=== PATIENT | female | born 1930 | race Caucasian/White ===

== ENCOUNTER 2017-01-18 14:13 | Inpatient (IN) ==
[2017-01-18] MEDS ORDERED: 0.45 % SODIUM CHLORIDE 1,000 ML IV SCH (17:15)
[2017-01-18] MEDS: 0.9 % SODIUM CHLORIDE 1,000 ML IV SCH (17:41)
[2017-01-18] MEDS: DOCUSATE SODIUM 100 MG CAPSULE PO SCH (20:56)
[2017-01-18] MEDS: HYDROcodone/APAP 5/325MG TABLET PO PRN (21:12)
[2017-01-19] MEDS: 0.9 % SODIUM CHLORIDE 1,000 ML IV SCH ×2 (03:30→13:30)
[2017-01-19] MEDS ORDERED: ceFAZolin 1 GM VIAL IV SCH (07:00)
[2017-01-19] MEDS: OMEPRAZOLE 20 MG CAPSULE PO SCH (11:53)
[2017-01-19] MEDS: DOCUSATE SODIUM 100 MG CAPSULE PO SCH ×2 (11:54→23:36)
[2017-01-19] MEDS ORDERED: LIDOCAINE HCL/PF 100 MG/5 ML SYRINGE IV ONE (15:40)
[2017-01-19] MEDS ORDERED: PHENYLEPHRINE 10 MG/ML VIAL IV ONE (15:40)
[2017-01-19] MEDS ORDERED: fentaNYL 250 MCG/5 ML VIAL IV ONE (15:40)
[2017-01-19] MEDS ORDERED: MIDAZOLAM 2 MG/2 ML VIAL IV ONE (15:40)
[2017-01-19] MEDS ORDERED: ONDANSETRON 4 MG/2 ML VIAL IV ONE (15:40)
[2017-01-19] MEDS ORDERED: PROPOFOL 200 MG/20 ML VIAL IV ONE (15:40)
[2017-01-19] MEDS ORDERED: TRANEXAMIC ACID 1,000 MG/10 ML VIAL IV ONE ×2 (15:40→19:07)
[2017-01-19] MEDS ORDERED: GLYCOPYRROLATE 0.2 MG/ML VIAL IV ONE (15:40)
[2017-01-19] MEDS ORDERED: KETAMINE 100 MG/ML ML IV ONE (15:40)
[2017-01-19] MEDS ORDERED: HETASTARCH 6% 500 ML BAG IV ONE (15:45)
[2017-01-19] MEDS ORDERED: GENTAMICIN SULFATE 800 MG/20 ML VIAL IR ONE ×2 (16:58→18:05)
[2017-01-19] MEDS ORDERED: MEPERIDINE 25 MG/ML SYRINGE IV PRN (18:32)
[2017-01-19] MEDS ORDERED: METHOCARBAMOL 1,000 MG/10 ML VIAL IV PRN (18:32)
[2017-01-19] MEDS ORDERED: IPRATROPIUM/ALBUTEROL 3 ML AMPUL.NEB NEB PRN (18:32)
[2017-01-19] MEDS ORDERED: fentaNYL 100 MCG/2 ML VIAL IV PRN (18:32)
[2017-01-19] MEDS ORDERED: ONDANSETRON 4 MG/2 ML VIAL IV PRN ×2 (18:32→19:07)
[2017-01-19] MEDS ORDERED: LACTATED RINGERS 1,000 ML IV SCH (18:45)
[2017-01-19] MEDS ORDERED: 0.9 % SODIUM CHLORIDE 250 ML IV SCH ×2 (18:45→20:45)
[2017-01-19] MEDS ORDERED: KETOROLAC 15 MG/ML VIAL IV PRN (19:07)
[2017-01-19] MEDS ORDERED: FLEETS ADULT ENEMA PR PRN (19:07)
[2017-01-19] MEDS ORDERED: ACETAMINOPHEN 325 MG TABLET PO PRN (19:07)
[2017-01-19] MEDS ORDERED: MAGNESIUM HYDROXIDE 30 ML ORAL.SUSP PO PRN (19:07)
[2017-01-19] MEDS ORDERED: HYDROcodone/APAP 10/325MG TABLET PO PRN (19:07)
[2017-01-19] MEDS ORDERED: BISACODYL 10 MG SUPP.RECT PR PRN (19:07)
[2017-01-19] MEDS ORDERED: BENZOCAINE/MENTHOL 1 LOZENGE PO PRN (19:07)
[2017-01-19] MEDS ORDERED: POLYETHYLENE GLYCOL 3350 17 GM PACKET PO PRN (19:07)
[2017-01-19] MEDS ORDERED: TEMAZEPAM 15 MG CAPSULE PO PRN (19:07)
--- NOTE | 2017-01-19 19:07 | Brief Operative Note ---
Date of procedure: 01/19/17 Pre-op diagnosis: left femur subtroch fx and failed gamma nail and supracondylar femur fx Post-op diagnosis: same Procedure: left gamma nail removal and cemented total hip and orif of supracondylar fx Grafts/Implants: Yes Anesthesia: GETA Complications: none Surgeon: Kyle King Finished Goods Planner: Brian Ruiz Estimated blood loss (cc): 400 Condition: stable Disposition: PACU
[2017-01-19] MEDS ORDERED: 0.45 % SODIUM CHLORIDE 1,000 ML IV SCH (19:15)
[2017-01-19] MEDS ORDERED: diphenhydrAMINE 25 MG CAPSULE PO PRN (19:16)
[2017-01-19] MEDS ORDERED: ALBUTEROL SULFATE 1 PUFF INHALER INH PRN (19:16)
[2017-01-19] MEDS ORDERED: IBUPROFEN 200 MG TABLET PO PRN (19:16)
[2017-01-19] MEDS ORDERED: CHLORPHENIRAMINE MALEATE PO PRN (19:16)
[2017-01-19] MEDS ORDERED: METOCLOPRAMIDE 5 MG TABLET PO SCH (21:00)
[2017-01-19] MEDS ORDERED: SENNOSIDES 1 TABLET PO SCH (21:00)
[2017-01-19] MEDS ORDERED: DOCUSATE SODIUM 100 MG CAPSULE PO SCH (21:00)
[2017-01-19] MEDS ORDERED: 0.9 % SODIUM CHLORIDE 250 ML IV ONE (21:55)
[2017-01-19] MEDS ORDERED: ACETAMINOPHEN 650 MG/65 ML BOTTLE IV PRN (22:38)
[2017-01-19] MEDS ORDERED: 0.9 % SODIUM CHLORIDE 1,000 ML IV SCH (22:41)
--- NOTE | 2017-01-19 22:44 | Internal Medicine Consult Note ---
Medical - CN: HPI - Data of Consult Requesting Physician: Kyle King Primary Care Provider: Jose Ramon Barnett - Consult Narrative Reason for consult: Post op Hypotension. History of present illness: Ms. Frost is a 86 year old Female with h/op right hip fracture, s/p failed gamma nail, was in the hospital today for removal of gamma nail procedure. The patient in the post op peroid was noted to be consistently hypotensive, and therefore medicine was consulted for further evaluation and management. The patient had procedure done in [place] today, the patient had approximatley 400cc blood loss during the surgical procedure as per op notes. The patient in the pacu and then PCU was hypotensive. During my eval the patient was already ordered 2 units of blood and first unit had just started. The patient complained of chills, but no other symptoms, she was somewhat confused and was not able to provide a proper history. The patient denies any chest pains, shortness of breath, headache , dizziness, abdominal pain, nausea and or vomiting. She has some chills post op, she denies post op pain. Labs show poc hct was 25, CXR chest shows elevated right li diaphram, othewise clear chest. no e/o gross infiltrate. BP during my eval was stable, map was 71, pt was 100% on 3 L nasal mask. CC: Kyle King All systems: reviewed and no additional remarkable complaints except as stated ( as per HPI) Medical - CN: PMH Medical history: gerd DJD Asthma? albuterol listed as home medication, but pt denies Surgical history: right hip fracture 1 yr ago. Pertinent family history: father with cancer, unknown type (from chart review) Social history: from chart review no etoh, tobacco or substance use. Medical - CN: Meds Home Medications Medication Instructions Recorded Confirmed Type Omeprazole [Prilosec] 20 mg PO DAILY 08/10/15 01/19/17 History Albuterol Sulfate [Ventolin] 1 puff INH Q4HP PRN 01/19/17 01/19/17 History Arginine [l-Arginine] 1 tablet PO DAILY 01/19/17 01/19/17 History Calcium Carbonate [Super Calcium] 600 mg PO BID 01/19/17 01/19/17 History Chlorpheniramine Maleate 1 tablet PO Q4HP PRN MDD 24mg 01/19/17 01/19/17 History [Chlor-Trimeton] Cholecalciferol (Vitamin D3) 400 unit PO BID 01/19/17 01/19/17 History [Delta D3] Cyclobenzaprine [Flexeril] 5 - 10 mg PO HSP PRN 01/19/17 01/19/17 History Docusate Sodium [Dulcolax Stool 200 mg PO DAILY 01/19/17 01/19/17 History Softener] HYDROcodone/ACETAMINOPHEN 1 - 2 each PO Q6HP PRN 01/19/17 01/19/17 History [Hydrocodon-Acetaminophen 5-325] Ibuprofen [Ibuprofen Ib] 400 mg PO TIDP PRN 01/19/17 01/19/17 History Lactobacillus [Culturelle] 1 cap PO DAILY 01/19/17 01/19/17 History Lisinopril [Zestril] 30 mg PO DAILY 01/19/17 01/19/17 History Metoclopramide [Reglan] 2.5 mg PO ACHS 01/19/17 01/19/17 History Multivitamin [One Daily] 1 each PO DAILY 01/19/17 01/19/17 History Polyethylene Glycol 3350 [Miralax] 17 gm PO DAILY 01/19/17 01/19/17 History Pseudoephedrine HCl 1 tablet PO Q12HP PRN 01/19/17 01/19/17 History [Pseudoephedrine ER] diphenhydrAMINE [Benadryl] 25 mg PO HSP PRN 01/19/17 01/19/17 History Allergies Allergy/AdvReac Type Severity Reaction Status Date / Time No Known Drug Allergies Allergy Verified 01/18/17 14:30 Medical - CN: Exam - Constitutional Vitals: Temp Pulse Resp BP Pulse Ox 97.5 F 82 16 174/84 100 01/19/17 20:05 01/19/17 20:05 01/19/17 20:05 01/19/17 20:05 01/19/17 21:09 Exam: GENERAL: The patient is a well-developed, well-nourished in no apparent distress. Is alert and oriented x2. VITAL SIGNS: Reviewed and as noted elsewhere. HEENT: Head is normocephalic and atraumatic. Extraocular muscles are intact. Pupils are equal, round, and reactive to light. Nares appeared normal. Mouth appears any without lesions. Mucous membranes are dry. NECK: Normal to inspection, Supple, No lymphadenopathy or thyromegaly. LUNGS: Air entry equal on both sides, no wheezing, crackles or rhonchi noted. No accessory muscles of respiration HEART: Regular rate HR 90-100 and rhythm normal, S1 and S2 heard, no Gallop, S3 or Rub Noted, No Gross murmur heard. ABDOMEN: Soft, nontender, and nondistended. Positive bowel sounds. No hepatosplenomegaly was noted. EXTREMITIES: No cyanosis, clubbing, rash, lesions or edema. NEUROLOGIC: Cranial nerves II through XII are grossly intact. Motor and Sensory System Grossly Intact (full exam not done given post op status) PSYCHIATRIC: Normal affect, Normal Mood. Appropriate Behavior. (as far as it can be post op, was confused and sleepy) SKIN: No ulceration or wounds noted, No jaundice, No rash noted. Medical - CN: Result - Labs CBC & Chem 7: 01/19/17 21:30 01/19/17 20:03 Labs: Short CBC 01/19/17 Range/Units 21:30 WBC TNP Hgb TNP Hct TNP Plt Count TNP Medical - CN: A/P - Narrative A/P Narrative: A/P Acute blood loss anemia: Due to post op blood loss, 400cc d ocumented, will get cbc, and in patient panel pt denies any h/o gi bleed, no itz, no blood in urine, check occult blood just incase 2 units prbc ordered, IVF saline after wards,pt bp is stable at this time, trend cbc, hold nsaids, ibuprofen and ketorolac for now, IV tylenol for pain, fever and chills for now. Get ua, check cbc /inpt panel to r/o other etiologies for low bp, abdon any uti or pna, CXR was not suggestive of pna on my read. GERD continue Prilosec continue same Right femur fracture/ s/p failed gamma nail: Management as per ortho. DVT asa bid as per ortho protocol.
[2017-01-19] MEDS: HYDROmorphone 2 MG/ML SYRINGE IV PRN (23:35)
[2017-01-19] MEDS: 0.9 % SODIUM CHLORIDE 10 ML SYRINGE IV SCH (23:36)
[2017-01-19] MEDS: ASPIRIN 325 MG ENTERIC COATED TABLET PO SCH (23:36)
[2017-01-19] MEDS: VITAMIN D3 400 UNIT TABLET PO SCH (23:36)
[2017-01-20] MEDS: HYDROmorphone 2 MG/ML SYRINGE IV PRN ×3 (00:58→09:16)
[2017-01-20 01:56] LABS: Basophils # (Auto) 0 K/mcL (0.0-0.3); Basophils % (Auto) 0.1 % (0.0-2.0); Eosinophils # (Auto) 0 K/mcL (0.0-0.7); Eosinophils % (Auto) 0 % (0.0-7.0); Granulocytes % (Auto) 88.9 % (38.0-78.0); Lymphocytes # (Auto) 0.8 K/mcL (1.5-4.8); Lymphocytes % (Auto) 4.3 % (15.5-49.0); Mean Cell Volume 95.9 fL (80.0-100.0); Mean Corpuscular HGB Conc 34.2 g/dL (31.0-36.0); Mean Corpuscular Hemoglobin 32.7 pg (26.0-34.0); Monocytes # (Auto) 1.2 K/mcL (0.1-0.9); Monocytes % (Auto) 6.7 % (1.0-12.0); Platelet Count 172 K/mcL (140-440); RBC 3.76 M/mcL (4.00-5.20); Red Cell Distribution Width 16.7 % (11.5-14.5)
[2017-01-20 02:19] LABS: ALT/SGPT 13 U/l (0-40); Albumin 2.2 gm/dL (3.2-5.2); Albumin/Globulin Ratio 1.6 (1.0-2.3); Alkaline Phosphatase 48 U/L (39-117); Bilirubin,Direct 0.2 mg/dL (0.0-0.3); Blood Urea Nitrogen 13 mg/dl (8-23); Gamma Glutamyl Transpeptidase 9 U/L (5-36); Magnesium 1.2 mg/dL (1.6-2.5); Uric Acid 3.9 mg/dL (2.5-8.0)
[2017-01-20] MEDS ORDERED: MAGNESIUM SULFATE 2 GM/50 ML BAG IV ONE ×2 (02:44→02:54)
[2017-01-20] MEDS: HYDROcodone/APAP 5/325MG TABLET PO PRN (02:47)
[2017-01-20 05:48] LABS: Basophils # (Auto) 0 K/mcL (0.0-0.3); Basophils % (Auto) 0.1 % (0.0-2.0); Eosinophils # (Auto) 0 K/mcL (0.0-0.7); Eosinophils % (Auto) 0.4 % (0.0-7.0); Granulocytes % (Auto) 85.7 % (38.0-78.0); Lymphocytes # (Auto) 0.8 K/mcL (1.5-4.8); Lymphocytes % (Auto) 6.3 % (15.5-49.0); Mean Cell Volume 96.2 fL (80.0-100.0); Mean Corpuscular HGB Conc 33.8 g/dL (31.0-36.0); Mean Corpuscular Hemoglobin 32.5 pg (26.0-34.0); Monocytes % (Auto) 7.5 % (1.0-12.0); Platelet Count 173 K/mcL (140-440); RBC 3.81 M/mcL (4.00-5.20); Red Cell Distribution Width 17.1 % (11.5-14.5)
[2017-01-20] MEDS: 0.9 % SODIUM CHLORIDE 10 ML SYRINGE IV SCH ×4 (05:51→21:01)
--- NOTE | 2017-01-20 06:49 | XRay Report ---
CLINICAL INFORMATION: Hypotension COMPARISON: 01/26/2016 FINDINGS: There is likely a small hiatal hernia. 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 The heart is minimally enlarged but unchanged. Pulmonary vessels are unremarkable. Lungs are clear. No effusions. IMPRESSION: No acute disease Interpreted and Authenticated by: Matias Wasserman 01/20/17
[2017-01-20] MEDS ORDERED: PSEUDOEPHEDRINE 30 MG TABLET PO PRN ×2 (06:55→13:58)
[2017-01-20 06:56] LABS: ALT/SGPT 15 U/l (0-40); Albumin 2.3 gm/dL (3.2-5.2); Albumin/Globulin Ratio 1.4 (1.0-2.3); Alkaline Phosphatase 53 U/L (39-117); Bilirubin,Direct 0.3 mg/dL (0.0-0.3); Blood Urea Nitrogen 15 mg/dl (8-23); Gamma Glutamyl Transpeptidase 10 U/L (5-36); Magnesium 2.1 mg/dL (1.6-2.5); Uric Acid 4.2 mg/dL (2.5-8.0)
--- NOTE | 2017-01-20 06:58 | XRay Report ---
CLINICAL INFORMATION: Postop total left hip revision and distal femoral fracture reduction and internal fixation COMPARISON: 01/27/2016 01/19/2017 pelvis and left femur films. FINDINGS: Left total hip revision is noted with a long femoral stem. 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 There is moderately comminuted oblique fracture of the distal femoral diaphysis which is transfixed by plate and screws. Alignment is anatomic. Left total knee prostheses is anatomically aligned. There is resorption about the tip of the tibial component which could indicate loosening. IMPRESSION: 1. Long stem left total hip prostheses revision - as described. 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 2. Obliquely oriented fracture of the distal femoral diaphysis has been reduced to anatomic alignment and transfixed by plate and screws. 3. Left total knee prostheses in anatomic position. There is a 10 mm lucent region of osteolysis, adjacent to the tibial stem, suggests the possibility loosening Interpreted and Authenticated by: Matias Wasserman 01/20/17
[2017-01-20] MEDS ORDERED: OMEPRAZOLE 20 MG CAPSULE PO SCH (07:30)
--- NOTE | 2017-01-20 07:36 | Operative Note ---
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 POSTOPERATIVE DIAGNOSIS: The failed gamma nail within subtrochanteric fracture nonunion with the addition of the supracondylar femur fracture, age approximately 5 to 6 days old. PROCEDURE: Left hip gamma nail removal, or hardware removal, open reduction and internal fixation of the subtrochanteric band, total hip arthroplasty with 200 mm size 5 reconstruction cemented stem and 48 cementless cup with two screws, a 36 mm +5 ceramic ball. Also, third procedure was a supracondylar femur fracture treated with open reduction and internal fixation with long plate, screws and cables and bone grafting. SURGEON: Kyle King MD MINE SUPERINTENDENT: Brian Ruiz PA-C ANESTHESIA: General LMA anesthesia. COMPLICATIONS: None. ESTIMATED BLOOD LOSS: About 300 to 400 mL. DESCRIPTION OF PROCEDURE: The patient was brought to the operating room and put to sleep with general LMA anesthesia. Once we confirmed the operative site of the left leg we then proceeded with the case. We made a superior posterior approach, identified the nail and removed two screws, one distal screw and one intertrochanteric screw. There was an obvious nonunion of the subtrochanteric area after we removed the gamma nail. The gamma nail had cut through the top of the head and was rubbing in the acetabulum. At this point, we proceeded with a total hip arthroplasty. We subluxed the hip anteriorly and reamed up to the size of a 48. We implanted a 48 cup at 20 degrees of anteversion and 40 degrees of inclination. Two screws were placed. The bone was very soft. We irrigated thoroughly and then we prepared the femur. This was reamed up for a size 5 with a 12 reamer. We then irrigated and cemented into place a 200 mm +5 stem with a +5 neck length ceramic head with a 36 mm ball within the cup. This was very stable. It was noticed during reduction that there was obvious crepitance near the knee at the starting of the case and then the middle. At this point we were imaged down by the knee and it showed a supracondylar femur fracture. At this point, we then exposed the fracture and placed a supracondylar plate and screws. This was anatomically reduced, held in place by a lobster claw. A 14 mm supracondylar Miko plate was then placed percutaneously, one cable at the fracture site, one cable proximally. We then placed five screws in the distal intercondylar region and then we placed five additional screws up the shaft. Some were unicortical, some were bicortical. This gave excellent fixation throughout. We irrigated thoroughly and bone grafted the fracture site. Images were taken. We then closed the fascial layer with Stratafix and 2-0 Vicryl and yamilka. Up by the hip this was irrigated. The capsule was closed with Stratafix and Ethibond and then we closed the skin with 2-0 Vicryl and yamilka. The patient tolerated this well. Sterile bandage was applied, abduction wedge was applied as well. We imaged all screws, and they all appeared to be well positioned. RBH:sumaya Job ID: [id number] Doc ID: [id number] Kyle King MD
--- NOTE | 2017-01-20 07:55 | Orthopedic Progress Note ---
Subjective Patient information: Note initiated : 01/20/17 at 7:52 am Service Date, if different from initiated Date: [] Patient: Radha Frost 86 y/o F admitted on 01/19/17 for Pain Control. Chief Complaint: [Pt is stable this morning on post operative day 1 without any significant concerns or complaints. Patients vital signs have remained stable. Patients dressing is dry and exhibits a grossly intact neurovascular and neuromotor exam. Patients 10 point ROS is otherwise negative. ] Objective Vital signs: Vital Signs Temp Pulse Pulse Pulse Resp BP BP 01/20/17 04:01 98.0 F 15 104/77 01/20/17 03:01 13 116/81 01/20/17 02:02 10 L 83/61 01/20/17 01:28 88 8 L 01/20/17 01:01 16 103/84 01/20/17 00:31 13 101/67 01/20/17 00:02 10 L 92/52 01/19/17 23:38 18 113/87 01/19/17 23:07 15 115/83 01/19/17 22:47 19 111/76 01/19/17 22:38 15 106/65 01/19/17 22:29 12 86/71 01/19/17 22:22 18 61/40 01/19/17 22:17 17 74/41 01/19/17 22:08 12 71/54 01/19/17 22:01 10 L 82/55 01/19/17 21:50 11 L 77/65 01/19/17 21:15 19 01/19/17 21:09 01/19/17 21:00 96.8 F L 13 01/19/17 20:05 97.5 F 82 82 16 97/79 01/19/17 19:50 78 74 16 120/74 01/19/17 19:35 97.5 F 87 85 14 82/58 01/19/17 19:30 97.5 F 88 85 14 98/65 01/19/17 19:25 97.5 F 86 85 18 94/69 01/19/17 19:20 97.5 F 85 85 18 95/41 01/19/17 11:34 97.9 F 18 159/85 BP Pulse Ox 01/20/17 04:01 97 01/20/17 03:01 98 01/20/17 02:02 99 01/20/17 01:28 97 01/20/17 01:01 100 01/20/17 00:31 99 01/20/17 00:02 99 01/19/17 23:38 100 01/19/17 23:07 100 01/19/17 22:47 100 01/19/17 22:38 100 01/19/17 22:29 100 01/19/17 22:22 100 01/19/17 22:17 100 01/19/17 22:08 100 01/19/17 22:01 100 01/19/17 21:50 100 01/19/17 21:15 63/38 100 01/19/17 21:09 100 01/19/17 21:00 74/51 100 01/19/17 20:05 174/84 100 01/19/17 19:50 100 01/19/17 19:35 174/84 100 01/19/17 19:30 174/84 99 01/19/17 19:25 174/84 100 01/19/17 19:20 174/84 100 01/19/17 11:34 97 Intake and Output 01/19/17 01/20/17 01/20/17 21:59 05:59 13:59 Intake Total 915 / 915 Output Total 1984 450 / 450 Balance -1984 465 / 465 Intake: Oral 240 / 240 Blood Product 675 / 675 Output: Urine Catheter Amount 1984 450 / 450 Other: Weight 147 lb 4.8 oz Intake & Output: Intake & Output 01/19/17 01/20/17 01/20/17 21:59 05:59 13:59 Intake Total 915 / 915 Output Total 1984 450 / 450 Balance -1984 465 / 465 Weight 147 lb 4.8 oz Intake: Oral 240 / 240 Blood Product 675 / 675 Output: Urine Catheter Amount 1984 450 / 450 Incision: Yes healing Incision clean and dry: Yes Dressing: Yes clean, Yes dry Weight bearing status: partial Neurological exam IM: Yes motor sensory intact, Yes neurovascular intact Extremities exam IM: Yes Foot pink and warm, Yes neurovascular intact - Labs CBC & BMP: 01/20/17 04:00 01/20/17 04:00 Labs: Orthopedic Labs 01/18/17 01/18/17 19:33 19:33 PT 15.7 H INR 1.2 H APTT 34 01/20/17 01/19/17 01/19/17 04:00 21:30 01:25 Hgb 12.4 TNP 12.3 Hct 36.6 TNP 36.0 Assessment and Plan (1) Hx of total hip arthroplasty The patient has been educated regarding dressing care, Physical Therapy recommendations, home exercises, restrictions, and follow up appointments. The patient has had all necessary DME prescribed. Pt will be followed by Hospitalist until deemed stable for hospital floor discharge. Pt will likely transfer to swing bed in [place]. Status: Acute (2) Closed left hip fracture Status: Acute Qualifiers: Encounter type: subsequent encounter
[2017-01-20] MEDS ORDERED: 0.9 % SODIUM CHLORIDE 500 ML IV ONE (08:26)
[2017-01-20] MEDS ORDERED: CALCIUM (OYSTER SHELL) 500 MG TABLET PO SCH (09:00)
[2017-01-20] MEDS ORDERED: ARGININE PO SCH (09:00)
[2017-01-20] MEDS ORDERED: POLYETHYLENE GLYCOL 3350 17 GM PACKET PO SCH (09:00)
[2017-01-20] MEDS ORDERED: DOCUSATE SODIUM 100 MG CAPSULE PO SCH (09:00)
[2017-01-20] MEDS ORDERED: MULTIVIT,THER IRON,CA,FA & MIN 1 TABLET PO SCH (09:00)
[2017-01-20] MEDS ORDERED: LACTOBACILLUS 1 CAPSULE PO SCH (09:00)
[2017-01-20] MEDS: OMEPRAZOLE 20 MG CAPSULE PO SCH (09:47)
[2017-01-20] MEDS: 0.9 % SODIUM CHLORIDE 1,000 ML IV SCH ×3 (09:48→14:01)
[2017-01-20] MEDS ORDERED: ceFAZolin 1 GM VIAL IV ONE ×3 (10:20→22:30)
[2017-01-20] MEDS: ASPIRIN 325 MG ENTERIC COATED TABLET PO SCH ×2 (10:26→20:59)
[2017-01-20] MEDS: METOCLOPRAMIDE 10 MG TABLET PO SCH ×4 (10:26→21:00)
[2017-01-20] MEDS: VITAMIN D3 400 UNIT TABLET PO SCH ×2 (11:40→21:00)
[2017-01-20] MEDS ORDERED: CHLORPHENIRAMINE MALEATE PO PRN (13:58)
[2017-01-20] MEDS ORDERED: MAGNESIUM HYDROXIDE 30 ML ORAL.SUSP PO PRN (13:58)
[2017-01-20] MEDS ORDERED: ALBUTEROL SULFATE 1 PUFF INHALER INH PRN (13:58)
[2017-01-20] MEDS ORDERED: ACETAMINOPHEN 650 MG/65 ML BOTTLE IV PRN (13:58)
[2017-01-20] MEDS ORDERED: FLEETS ADULT ENEMA PR PRN (13:58)
[2017-01-20] MEDS ORDERED: POLYETHYLENE GLYCOL 3350 17 GM PACKET PO PRN (13:58)
[2017-01-20] MEDS ORDERED: BISACODYL 10 MG SUPP.RECT PR PRN (13:58)
[2017-01-20] MEDS ORDERED: BENZOCAINE/MENTHOL 1 LOZENGE PO PRN (13:58)
[2017-01-20] MEDS ORDERED: ACETAMINOPHEN 325 MG TABLET PO PRN (13:58)
[2017-01-20] MEDS ORDERED: ONDANSETRON 4 MG/2 ML VIAL IV PRN (13:58)
[2017-01-20] MEDS: HYDROcodone/APAP 10/325MG TABLET PO PRN ×2 (14:46→18:39)
--- NOTE | 2017-01-20 19:24 | Internal Med Progress Note ---
Medical - PN: Subj Patient information: Note initiated : 01/20/17 at 7:21 pm Service Date, if different from initiated Date: [] Patient: Radha Frost 86 y/o F admitted on 01/19/17 for Pain Control. Chief Complaint: [] Interval history: Pt seen examined, no acute overnight issues notes of pain in the lft hip hb improved and has remained stable did receive some IVF today which helped she had received 2 units of blood before coming to [facility] which I am not sure why. monitor hb for now, if remains stable, likely related to surgery and hip fracture. if hb continues to drop will need to consider alternative etiology for blood loss. Pertinent ROS: Denies headache, dizziness Denies chest pain, palpitations Denies cough or shortness of breath Denies abdominal pain, nausea or vomiting. - Constitutional Vitals: Vital Signs Temp Pulse Resp BP Pulse Ox 97.9 F 97 H 14 161/63 99 01/20/17 16:01 01/20/17 15:00 01/20/17 16:01 01/20/17 16:01 01/20/17 16:01 Period Temp Pulse Resp BP Sys/Sandoval Pulse Ox Last 24 Hr 96.8 F-99.0 F 74-99 8-35 61-174/38-138 95-100 Intake and Output 01/20/17 01/20/17 01/20/17 05:59 13:59 21:59 Intake Total 2029 1740 / 1740 Output Total 450 / 450 450 / 450 Balance 1580 / 1580 1740 / 1740 -450 / -450 Weight 147 lb 4.8 oz Patient Weight 01/21/17 05:59 Weight 147 lb 4.8 oz Intake & Output: Intake & Output 01/20/17 01/20/17 01/20/17 05:59 13:59 21:59 Intake Total 2029 1740 / 1740 Output Total 450 / 450 450 / 450 Balance 1580 / 1580 1740 / 1740 -450 / -450 Weight 147 lb 4.8 oz Intake: IV 1115 / 1115 1500 / 1500 Sodium Chloride 0.9% 1,000 ml @ 699 / 699 75 mls/hr IV .[id number] REPLACED BY [facility] Rx#: [id number] Sodium Chloride 0.9% 500 ml @ 500 / 500 Wide Open IV BOLUS ONE Rx#: [id number] Oral 240 / 240 240 / 240 Blood Product 675 / 675 Output: Urine Catheter Amount 450 / 450 450 / 450 Other: Meal Breakfast Percent of Meal Consumed 25% Feeding Ability Independent Exam: Constitutional; Afebrile, cooperative, alert, not in distress. Eyes- No icterus, , No periorbital swelling Ears- Ext ear normal, hearing normal to conversation. Neck- Midline trachea, supple Respiratory system: Air Entry equal on both sides, No crackles or wheezing, no rhonchi. CVS- Rate rhythm regular, S1,S2 heard, no gallop, no rub. Abdomen- Soft nontender abdomen, no organomegaly, no tenderness, no guarding or rigidity, [employer]- AOOx3, moving all extremities, no gross focal deficit noted. Medical - PN: Obj Da - Labs CBC & Chem 7: 01/20/17 15:00 01/20/17 04:00 Labs: Abnormal Lab Results 01/20/17 01/20/17 01/20/17 15:00 10:00 04:00 WBC RBC Hgb 10.2 L 10.9 L Hct 30.0 L 31.8 L POC Hct RDW Gran % Lymph % (Auto) Gran # Lymph # (Auto) Taliaferro # (Auto) PT INR POC Sodium Sodium Carbon Dioxide 20 L Creatinine 0.4 L POC Creatinine Glucose 112 H POC Glucose Calcium 7.5 L POC WB Ioniz Calcium Magnesium Total Bilirubin 1.8 H Total Protein 4.0 L Albumin 2.3 L Globulin 1.7 L 01/20/17 01/19/17 01/19/17 04:00 20:03 01:25 WBC 13.2 H RBC 3.81 L Hgb Hct POC Hct 25.0 L RDW 17.1 H Gran % 85.7 H Lymph % (Auto) 6.3 L Gran # 11.3 H Lymph # (Auto) 0.8 L Taliaferro # (Auto) 1.0 H PT INR POC Sodium 131 L Sodium 129 L Carbon Dioxide 21 L Creatinine 0.4 L POC Creatinine 0.5 L Glucose 122 H POC Glucose 135 H Calcium 7.2 L POC WB Ioniz Calcium 1.08 L Magnesium 1.2 L Total Bilirubin 1.6 H Total Protein 3.6 L Albumin 2.2 L Globulin 1.4 L 01/19/17 01/18/17 01:25 19:33 WBC 18.0 H RBC 3.76 L Hgb Hct POC Hct RDW 16.7 H Gran % 88.9 H Lymph % (Auto) 4.3 L Gran # 16.0 H Lymph # (Auto) 0.8 L Taliaferro # (Auto) 1.2 H PT 15.7 H INR 1.2 H POC Sodium Sodium Carbon Dioxide Creatinine POC Creatinine Glucose POC Glucose Calcium POC WB Ioniz Calcium Magnesium Total Bilirubin Total Protein Albumin Globulin Meds: Medications Acetaminophen (Tylenol) 650 mg PO Q6HP PRN PRN Reason: PAIN/FEVER > 101 Hydrocodone Bitart/Acetaminophen ([place] 10/325mg) 0 tab PO Q4HP PRN PRN Reason: PAIN LEVEL 3-6 Last Admin: 01/20/17 18:39 Dose: 1 tab Albuterol Sulfate (Ventolin) 1 puff INH Q4HP PRN PRN Reason: Bronchodilation Aspirin (Ecotrin) 325 mg PO BID LILLIANA Bisacodyl (Dulcolax) 10 mg CA Q2-3DAYS PRN PRN Reason: Constipation Calcium Carbonate/Glycine (Oscal) 500 mg PO BID LILLIANA Diphenhydramine HCl (Benadryl) 25 mg PO HSP PRN PRN Reason: Sleep Docusate Sodium (Colace) 200 mg PO DAILY LILLIANA Hydromorphone HCl (Dilaudid) 0 mg IV Q2HP PRN PRN Reason: PAIN LEVEL > 6 Sodium Chloride (Sodium Chloride 0.9%) 1,000 mls @ 100 mls/hr IV .Q10H REPLACED BY [facility] Stop: 01/21/17 04:25 Last Admin: 01/20/17 14:01 Dose: Not Given Acetaminophen (Ofirmev) 650 mg in 65 mls @ 130 mls/hr IV Q6HP PRN PRN Reason: Pain/Fever > 101/chills Iron Carb/Multivit/Tufter Operator/Folic Acid (Multivitamin W/Minerals) 1 tab PO DAILY LILLIANA Lactobacillus Rhamnosus (Culturelle) 1 cap PO DAILY LILLIANA Magnesium Hydroxide (Milk Of Magnesia) 30 ml PO BIDP PRN PRN Reason: Constipation Metoclopramide HCl (Reglan) 2.5 mg PO ACHS REPLACED BY [facility] Last Admin: 01/20/17 18:19 Dose: 2.5 mg Omeprazole (Prilosec) 20 mg PO ACB REPLACED BY [facility] Ondansetron HCl (Zofran) 4 mg IV Q4HP PRN PRN Reason: Nausea And Vomiting Chlorpheniramine Maleate [Chlor- Trimeton] Tablet 1 dose PO Q4HP PRN PRN Reason: Allergy Symptoms Arginine [L-Arginine (] Tablet) 1 dose PO DAILY REPLACED BY [facility] Polyethylene Glycol (Miralax) 17 gm PO DAILY REPLACED BY [facility] Pseudoephedrine HCl (Sudafed) 30 mg PO Q12HP PRN PRN Reason: Allergy Symptoms Senna (Senokot) 2 tab PO HS REPLACED BY [facility] Sodium Biphosphate/Sodium Phosphate (Fleets Adult) 1 dose CA Q3-4DAYS PRN PRN Reason: Constipation Sodium Chloride (Saline Flush) 10 ml IV Q8 REPLACED BY [facility] Last Admin: 01/20/17 14:01 Dose: Not Given Temazepam (Restoril) 15 mg PO HSP PRN PRN Reason: Insomnia Throat Lozenges (Cepacol) 1 lozenge PO PRN PRN PRN Reason: Sore Throat Vitamin D (Vitamin D3) 400 unit PO BID REPLACED BY [facility] Medical - PN: A/P - Time Spent With Patient Total time spent is greater than 50% in coordination of care (as documented) at patient's floor/unit and/or counseling patient: - Narrative A/P Narrative: A/P Acute blood loss anemia: due to intraop / fracture related blood loss, hb stable now monitor for now if hb remains stable in AM should be stable for d/c from medicine stand point. bp much better today. GERD continue Prilosec continue same Right femur fracture/ s/p failed gamma nail: Management as per ortho. DVT asa bid as per ortho protocol.
[2017-01-20] MEDS: SENNOSIDES 1 TABLET PO SCH (20:59)
[2017-01-20] MEDS: CALCIUM (OYSTER SHELL) 500 MG TABLET PO SCH (20:59)
[2017-01-20] MEDS ORDERED: diphenhydrAMINE 25 MG CAPSULE PO PRN (21:00)
[2017-01-20] MEDS ORDERED: TEMAZEPAM 15 MG CAPSULE PO PRN (21:00)
[2017-01-20] MEDS ORDERED: 0.9 % SODIUM CHLORIDE 1,000 ML IV ONE (21:37)
[2017-01-20 22:53] LABS: Basophils # (Auto) 0 K/mcL (0.0-0.3); Basophils % (Auto) 0 % (0.0-2.0); Eosinophils # (Auto) 0 K/mcL (0.0-0.7); Eosinophils % (Auto) 0 % (0.0-7.0); Granulocytes % (Auto) 85.6 % (38.0-78.0); Lymphocytes # (Auto) 1.1 K/mcL (1.5-4.8); Lymphocytes % (Auto) 7.5 % (15.5-49.0); Mean Cell Volume 96.7 fL (80.0-100.0); Mean Corpuscular HGB Conc 33.5 g/dL (31.0-36.0); Mean Corpuscular Hemoglobin 32.4 pg (26.0-34.0); Monocytes % (Auto) 6.9 % (1.0-12.0); Platelet Count 161 K/mcL (140-440); RBC 2.73 M/mcL (4.00-5.20)
[2017-01-20 23:17] LABS: Blood Urea Nitrogen 21 mg/dl (8-23)
[2017-01-21] MEDS: HYDROmorphone 2 MG/ML SYRINGE IV PRN (00:21)
[2017-01-21] MEDS: 0.9 % SODIUM CHLORIDE 1,000 ML IV SCH (00:58)
[2017-01-21 07:19] LABS: Basophils # (Auto) 0 K/mcL (0.0-0.3); Basophils % (Auto) 0.1 % (0.0-2.0); Eosinophils # (Auto) 0.1 K/mcL (0.0-0.7); Eosinophils % (Auto) 0.3 % (0.0-7.0); Lymphocytes # (Auto) 0.9 K/mcL (1.5-4.8); Lymphocytes % (Auto) 5.1 % (15.5-49.0); Mean Cell Volume 96.8 fL (80.0-100.0); Mean Corpuscular Hemoglobin 32.9 pg (26.0-34.0); Monocytes # (Auto) 1.1 K/mcL (0.1-0.9); Monocytes % (Auto) 6.5 % (1.0-12.0); Platelet Count 156 K/mcL (140-440); RBC 2.57 M/mcL (4.00-5.20); Red Cell Distribution Width 17.3 % (11.5-14.5)
[2017-01-21] MEDS ORDERED: OMEPRAZOLE 20 MG CAPSULE PO SCH (07:30)
[2017-01-21 07:43] LABS: ALT/SGPT 15 U/l (0-40); Albumin 2.2 gm/dL (3.2-5.2); Albumin/Globulin Ratio 1.6 (1.0-2.3); Alkaline Phosphatase 51 U/L (39-117); Bilirubin,Direct 0.2 mg/dL (0.0-0.3); Blood Urea Nitrogen 17 mg/dl (8-23); Gamma Glutamyl Transpeptidase 12 U/L (5-36); Iron 32 mcg/dl (37-145); Magnesium 1.9 mg/dL (1.6-2.5); Transferrin % Saturation 28 % (15-50); Unsaturated Iron Binding 82 mcg/dL (112-346); Uric Acid 3.7 mg/dL (2.5-8.0)
[2017-01-21] MEDS: ARGININE PO SCH (08:10)
[2017-01-21] MEDS: VITAMIN D3 400 UNIT TABLET PO SCH ×2 (08:10→22:21)
[2017-01-21] MEDS: 0.9 % SODIUM CHLORIDE 10 ML SYRINGE IV SCH ×2 (08:15→12:19)
[2017-01-21 08:35] LABS: Retic Absolute 1.8 % (0.5-1.5)
[2017-01-21] MEDS: METOCLOPRAMIDE 10 MG TABLET PO SCH ×4 (08:35→22:26)
[2017-01-21] MEDS: HYDROcodone/APAP 10/325MG TABLET PO PRN ×2 (08:35→22:28)
[2017-01-21] MEDS: POLYETHYLENE GLYCOL 3350 17 GM PACKET PO SCH (08:35)
[2017-01-21] MEDS: MULTIVIT,THER IRON,CA,FA & MIN 1 TABLET PO SCH (08:35)
[2017-01-21] MEDS: DOCUSATE SODIUM 100 MG CAPSULE PO SCH (08:36)
[2017-01-21] MEDS: ASPIRIN 325 MG ENTERIC COATED TABLET PO SCH (08:36)
[2017-01-21] MEDS: CALCIUM (OYSTER SHELL) 500 MG TABLET PO SCH ×2 (08:36→22:25)
[2017-01-21] MEDS: LACTOBACILLUS 1 CAPSULE PO SCH (08:36)
[2017-01-21 08:38] LABS: Haptoglobin 128 mg/dl (30-200)
[2017-01-21 08:41] LABS: Vitamin B12 877.4 pg/ml (232-1245)
[2017-01-21] MEDS ORDERED: FLEETS ADULT ENEMA PR ONE (09:13)
[2017-01-21] MEDS ORDERED: 0.9 % SODIUM CHLORIDE 1,000 ML IV SCH (09:15)
--- NOTE | 2017-01-21 09:22 | Internal Med Progress Note ---
Medical - PN: Subj Patient information: Note initiated : 01/21/17 at 9:19 am Service Date, if different from initiated Date: [] Patient: Radha Frost 86 y/o F admitted on 01/19/17 for Pain Control. Chief Complaint: [] Interval history: Pt seen examined, no acute overnight issues notes of pain in the lft hip hb improved and has remained stable did receive some IVF today which helped she had received 2 units of blood before coming to [facility] which I am not sure why. monitor hb for now, if remains stable, likely related to surgery and hip fracture. if hb continues to drop will need to consider alternative etiology for blood loss. Jan 21: patient seen examined, overnight the patients hb continued to drop, it had dropped to 8.2 today, she is tachcyardic adn feels a bit dizzy. She has not yet had a bm CT abdomen does not reveal any retroperitoneal bleed, she has a normal BUN CT hip shows some hemorrage, but not a lot as per radiology Will plan to get GI eval to see if any ongoing GI loss? transfuse 2 more units of prbc d/c asa start on SCD for DVT prophylaxis. IV PPI for now Fleets enema to help with BM continue to monitor closely try to get PICC line if no good IV access. Laboratory Tests 01/20/17 01/20/17 01/20/17 04:00 10:00 15:00 Hgb 12.4 10.9 L 10.2 L 01/20/17 01/20/17 01/21/17 19:32 21:45 06:40 Hgb 9.7 L 8.9 L 8.4 L Pertinent ROS: Denies headache, some dizziness when upright. Denies chest pain, palpitations Denies cough or shortness of breath some left uppe qudarant pain when sitting up, no nausea or vomiting, admits to constipation. . - Constitutional Vitals: Vital Signs Temp Pulse Resp BP Pulse Ox 98.1 F 102 H 16 127/44 99 01/21/17 04:02 01/21/17 07:00 01/21/17 04:02 01/21/17 04:02 01/21/17 04:02 Period Temp Pulse Resp BP Sys/Sandoval Pulse Ox Last 24 Hr 97.6 F-98.1 F 97-102 11-35 61-161/44-83 95-100 Intake and Output 01/20/17 01/21/17 01/21/17 21:59 05:59 13:59 Intake Total 1120 / 1120 Output Total 450 / 450 375 / 375 Balance -450 / -450 745 / 745 Weight 147 lb 12.8 oz Intake & Output: Intake & Output 01/20/17 01/21/17 01/21/17 21:59 05:59 13:59 Intake Total 1120 / 1120 Output Total 450 / 450 375 / 375 Balance -450 / -450 745 / 745 Weight 147 lb 12.8 oz Intake: IV 1000 / 1000 Oral 120 / 120 Output: Urine Catheter Amount 450 / 450 375 / 375 Exam: Constitutional; Afebrile, cooperative, alert, not in distress. Eyes- No icterus, , No periorbital swelling Ears- Ext ear normal, hearing normal to conversation. Neck- Midline trachea, supple Respiratory system: Air Entry equal on both sides, No crackles or wheezing, no rhonchi. CVS- Rate tachycardic, rhythm regular, S1,S2 heard, no gallop, no rub. Abdomen- Soft nontender abdomen, no organomegaly, no tenderness, no guarding or rigidity, [employer]- AOOx3, moving all extremities, no gross focal deficit noted. Medical - PN: Obj Da - Labs CBC & Chem 7: 01/21/17 06:40 01/21/17 06:40 Labs: Abnormal Lab Results 01/21/17 01/21/17 01/21/17 06:40 06:40 06:40 WBC 17.0 H RBC 2.57 L Hgb 8.4 L Hct 24.8 L POC Hct RDW 17.3 H Gran % 88.0 H Lymph % (Auto) 5.1 L Gran # 14.9 H Lymph # (Auto) 0.9 L Ward # (Auto) 1.1 H Absolute Retic 1.8 H PT INR POC Sodium Sodium 132 L Chloride Carbon Dioxide Creatinine 0.4 L POC Creatinine Glucose 111 H POC Glucose Calcium 7.4 L POC WB Ioniz Calcium Phosphorus 2.6 L Magnesium Iron 32 L TIBC 114 L Unsat Iron Binding 82 L Ferritin 3448.0 H Total Bilirubin Total Protein 3.6 L Albumin 2.2 L Globulin 1.4 L 12/01/2501/20/17 01/20/17 21:45 21:45 19:32 WBC 14.1 H RBC 2.73 L Hgb 8.9 L 9.7 L Hct 26.4 L 27.9 L POC Hct RDW 17.0 H Gran % 85.6 H Lymph % (Auto) 7.5 L Gran # 12.0 H Lymph # (Auto) 1.1 L Ward # (Auto) 1.0 H Absolute Retic PT INR POC Sodium Sodium 127 L Chloride 94 L Carbon Dioxide 21 L Creatinine POC Creatinine Glucose 133 H POC Glucose Calcium 7.2 L POC WB Ioniz Calcium Phosphorus Magnesium Iron TIBC Unsat Iron Binding Ferritin Total Bilirubin Total Protein Albumin Globulin 01/20/17 01/20/17 01/20/17 15:00 10:00 04:00 WBC RBC Hgb 10.2 L 10.9 L Hct 30.0 L 31.8 L POC Hct RDW Gran % Lymph % (Auto) Gran # Lymph # (Auto) Ward # (Auto) Absolute Retic PT INR POC Sodium Sodium Chloride Carbon Dioxide 20 L Creatinine 0.4 L POC Creatinine Glucose 112 H POC Glucose Calcium 7.5 L POC WB Ioniz Calcium Phosphorus Magnesium Iron TIBC Unsat Iron Binding Ferritin Total Bilirubin 1.8 H Total Protein 4.0 L Albumin 2.3 L Globulin 1.7 L 01/20/17 01/19/17 01/19/17 04:00 20:03 01:25 WBC 13.2 H RBC 3.81 L Hgb Hct POC Hct 25.0 L RDW 17.1 H Gran % 85.7 H Lymph % (Auto) 6.3 L Gran # 11.3 H Lymph # (Auto) 0.8 L Ward # (Auto) 1.0 H Absolute Retic PT INR POC Sodium 131 L Sodium 129 L Chloride Carbon Dioxide 21 L Creatinine 0.4 L POC Creatinine 0.5 L Glucose 122 H POC Glucose 135 H Calcium 7.2 L POC WB Ioniz Calcium 1.08 L Phosphorus Magnesium 1.2 L Iron TIBC Unsat Iron Binding Ferritin Total Bilirubin 1.6 H Total Protein 3.6 L Albumin 2.2 L Globulin 1.4 L 01/19/17 01/18/17 01:25 19:33 WBC 18.0 H RBC 3.76 L Hgb Hct POC Hct RDW 16.7 H Gran % 88.9 H Lymph % (Auto) 4.3 L Gran # 16.0 H Lymph # (Auto) 0.8 L Ward # (Auto) 1.2 H Absolute Retic PT 15.7 H INR 1.2 H POC Sodium Sodium Chloride Carbon Dioxide Creatinine POC Creatinine Glucose POC Glucose Calcium POC WB Ioniz Calcium Phosphorus Magnesium Iron TIBC Unsat Iron Binding Ferritin Total Bilirubin Total Protein Albumin Globulin Meds: Medications Acetaminophen (Tylenol) 650 mg PO Q6HP PRN PRN Reason: PAIN/FEVER > 101 Last Admin: 01/21/17 08:36 Dose: 650 mg Hydrocodone Bitart/Acetaminophen ([place] 10/325mg) 0 tab PO Q4HP PRN PRN Reason: PAIN LEVEL 3-6 Last Admin: 01/21/17 08:35 Dose: 1 tab Albuterol Sulfate (Ventolin) 1 puff INH Q4HP PRN PRN Reason: Bronchodilation Bisacodyl (Dulcolax) 10 mg CA Q2-3DAYS PRN PRN Reason: Constipation Calcium Carbonate/Glycine (Oscal) 500 mg PO BID [facility] Last Admin: 01/21/17 08:36 Dose: 500 mg Diphenhydramine HCl (Benadryl) 25 mg PO HSP PRN PRN Reason: Sleep Docusate Sodium (Colace) 200 mg PO DAILY [facility] Last Admin: 01/21/17 08:36 Dose: 200 mg Hydromorphone HCl (Dilaudid) 0 mg IV Q2HP PRN PRN Reason: PAIN LEVEL > 6 Last Admin: 01/21/17 00:21 Dose: 0.4 mg Acetaminophen (Ofirmev) 650 mg in 65 mls @ 130 mls/hr IV Q6HP PRN PRN Reason: Pain/Fever > 101/chills Sodium Chloride (Sodium Chloride 0.9%) 1,000 mls @ 20 mls/hr IV .Q24H [facility] Iron Carb/Multivit/[place]/Folic Acid (Multivitamin W/Minerals) 1 tab PO DAILY [facility] Last Admin: 01/21/17 08:35 Dose: 1 tab Lactobacillus Rhamnosus (Culturelle) 1 cap PO DAILY [facility] Last Admin: 01/21/17 08:36 Dose: 1 cap Magnesium Hydroxide (Milk Of Magnesia) 30 ml PO BIDP PRN PRN Reason: Constipation Metoclopramide HCl (Reglan) 2.5 mg PO ACHS [facility] Last Admin: 01/21/17 08:35 Dose: 2.5 mg Omeprazole (Prilosec) 20 mg PO ACB [facility] Last Admin: 01/21/17 08:35 Dose: 20 mg Ondansetron HCl (Zofran) 4 mg IV Q4HP PRN PRN Reason: Nausea And Vomiting Last Admin: 01/20/17 19:26 Dose: 4 mg Chlorpheniramine Maleate [Chlor- Trimeton] Tablet 1 dose PO Q4HP PRN PRN Reason: Allergy Symptoms Arginine [L-Arginine (] Tablet) 1 dose PO DAILY [facility] Last Admin: 01/21/17 08:10 Dose: Not Given Polyethylene Glycol (Miralax) 17 gm PO DAILY [facility] Last Admin: 01/21/17 08:35 Dose: 17 gm Pseudoephedrine HCl (Sudafed) 30 mg PO Q12HP PRN PRN Reason: Allergy Symptoms Senna (Senokot) 2 tab PO HS [facility] Last Admin: 01/20/17 20:59 Dose: 2 tab Sodium Biphosphate/Sodium Phosphate (Fleets Adult) 1 dose CA Q3-4DAYS PRN PRN Reason: Constipation Sodium Chloride (Saline Flush) 10 ml IV Q8 [facility] Last Admin: 01/21/17 08:15 Dose: Not Given Temazepam (Restoril) 15 mg PO HSP PRN PRN Reason: Insomnia Last Admin: 01/20/17 20:59 Dose: 15 mg Throat Lozenges (Cepacol) 1 lozenge PO PRN PRN PRN Reason: Sore Throat Vitamin D (Vitamin D3) 400 unit PO BID [facility] Last Admin: 01/21/17 08:10 Dose: Not Given Medical - PN: A/P - Time Spent With Patient Total time spent is greater than 50% in coordination of care (as documented) at patient's floor/unit and/or counseling patient: - Narrative A/P Narrative: A/P Acute blood loss anemia: due to intraop / fracture related blood loss, hb trending down slowly again. Transfuse 2 more units GI consult to r/o GI source of bleed. IV PPI monitor for now on telemetery, hct q6 hrs. GERD IV PPI For now till GI eval Right femur fracture/ s/p failed gamma nail: Management as per ortho. DVT scd for now given concern for bleed, resume dvt prophylaxis if no obvious bleed noted.
--- NOTE | 2017-01-21 10:31 | XRay Report ---
CLINICAL INFORMATION: Elevated white blood cell count COMPARISON: 01/19/2017 FINDINGS: Suspect a small hiatal hernia. The cardiomediastinal silhouette and pulmonary vessels are otherwise normal. Minor atelectasis present in the right base. There are no oumar infiltrates or effusions IMPRESSION: Mild atelectasis - right base. No infiltrates Interpreted and Authenticated by: Matias Wasserman 01/21/17
[2017-01-21] MEDS: PANTOPRAZOLE 40 MG VIAL IV SCH ×2 (12:16→17:03)
--- NOTE | 2017-01-21 15:22 | Cat Scan Report ---
CLINICAL INFORMATION: Recent left hip revision. Decreasing hematocrit evaluate for hemorrhage COMPARISON: None. TECHNIQUE: 0.625 mm helical slices were obtained from the mid heart through the subtrochanteric regions. Following reconstruction, 2.5 mm sagittal, coronal and axial reformatted images were processed and reviewed at bone and soft tissue windows.The exam was performed using radiation dose optimization techniques including, but not limited to, automated exposure control, adjustment of the mA and/or kV according to patient size and use of iterative reconstruction technique. FINDINGS: Lung bases show only scattered scarring and atelectasis. Tiny bilateral pleural effusions noted. Moderate size hiatal hernia is present. The heart is mildly enlarged and there is very heavy calcification the region of mitral annulus. Images through the abdomen show the noncontrasted gallbladder is mildly enlarged, but otherwise, normal.The bile ducts are normal - CBD is 5 mm. The noncontrasted liver, both kidneys, adrenal glands, spleen, pancreas and aorta are normal in size, configuration and attenuation without focal lesion. There is no hemorrhage within the mesenteric cavity or retroperitoneal region. Multiple sigmoid diverticuli noted but no evidence of diverticulitis. The remainder of the colon, small bowel and stomach are grossly normal. No free air or adenopathy. Images through the pelvis show urinary bladder to be normal. Normal-appearing post menopausal uterus and ovaries noted. Left total hip revision changes are noted. The femoral stem extends through a severely comminuted fracture of the proximal femoral diaphysis. There are also cerclage wires are supportive of the proximal diaphyseal fracture. There is marked osseous resorption of the [place] acetabulum. The acetabular component of the hip prostheses projects through the medial wall of the bony acetabulum which is fractured. Only the lateral one half of the prosthetic acetabulum is supported by pelvic bone. There is moderate edema within the periarticular soft tissues including the gluteal musculature. There is a 4 cm hematoma in the subcutaneous fat of the gluteal region and 3-4 smaller hematomas are seen in the gluteal musculature. Severe T10 and T12 compression fractures are chronic IMPRESSION: 1. No evidence of intraperitoneal or retroperitoneal hemorrhage 2. Left total hip revision. There is moderate osseous resorption of the [place] acetabulum with the prosthetic acetabulum projecting through the medial acetabular wall which is fractured. Only the lateral one half of the prosthetic acetabulum is supported by the pelvic bone. The acetabulum was normal on a plain film one year prior 01/28/2016. Suspect the osseous resorptive is a result of inflammation or infection. The femoral stem extends through an transfixes a mildly comminuted subtrochanteric fracture which is mildly displaced. 3. Moderate edema within the periarticular musculature and subcutaneous fat. There is a 4 cm hematoma subcutaneous right gluteal fat with scattered smaller hematomas within the gluteal musculature. They are relatively small and likely would not account for significant blood loss. 4. Moderate-sized hiatal hernia 5. Bibasilar atelectasis and small effusion. Interpreted and Authenticated by: Matias Wasserman 01/21/17
--- NOTE | 2017-01-21 16:05 | Cat Scan Report ---
CLINICAL INFORMATION: Status post left total hip revision. Decreasing hematocrit. TECHNIQUE: 0.625 mm helical slices were obtained from the mid ileum through the proximal tibia and fibula. Following reconstruction, 2.5 mm sagittal, coronal axial reformatted images were processed and reviewed at bone and soft tissue windows. FINDINGS: Long stem left total hip revision is in near-anatomic alignment. The femoral stem extends through moderately comminuted fracture subtrochanteric fracture. The fragments are displaced less than 1 cm. The prosthetic acetabulum extrusion through the fracture wall of the medial point [place] acetabula which shows marked osteolysis. No effusion within the left hip joint. There is also a mildly comminuted obliquely oriented fracture of the distal femoral diaphysis which is transfixed by plate and screws the fragments are mildly displaced. Left total knee prostheses is unremarkable. There is a 20.5 cm hematoma in the subcutaneous fat of the left gluteal region and scattered smaller hematomas and edema is seen within the periarticular musculature including the gluteal region. IMPRESSION: 1. 3.5 cm hematoma in the subcutaneous left gluteal fat with scattered smaller hematomas in the periarticular musculature. 2. Left total hip revision. There is moderate osteolysis of the [place] acetabulum with displacement of the prosthetic acetabulum through the thin medial wall into the soft tissue. 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 The medial wall is fractured. Only the lateral one half of the prosthetic acetabulum is supported by the pelvis. The femoral stem transfixes a mildly comminuted, mildly displaced fracture of the proximal femur. 3. Moderately comminuted fracture the distal femoral diaphysis transfix by plate and screws. Minimal displacement. Interpreted and Authenticated by: Matias Wasserman 01/21/17
[2017-01-21] MEDS ORDERED: KETAMINE 10 MG/ML ML IV PRN (16:49)
[2017-01-21] MEDS ORDERED: MIDAZOLAM 2 MG/2 ML VIAL IV SCH (17:00)
[2017-01-21] MEDS ORDERED: PROPOFOL 200 MG/20 ML VIAL IV SCH (17:00)
--- NOTE | 2017-01-21 20:28 | Consultation ---
DATE OF CONSULTATION: 01/21/2017 Brief Consultation Note. IMPRESSION: 1. Anemia, probably secondary to blood loss around left hip surgery involving a failed gamma nail and a cemented total hip and open reduction and internal fixation of a supracondylar fracture. 2. Possible gastric ulcer, Dieulafoy's lesion, or angiodysplasia that is causing some blood loss. 3. By history, reflux but currently asymptomatic. 4. Possible bone marrow hypofunction as evidenced by a reticulocyte count of approximately 1.8 with a low hemoglobin. 5. Additional diagnoses include degenerative joint disease, ?asthma. DISCUSSION AND RECOMMENDATIONS: I feel it worthwhile to proceed with an EGD as the patient could have a Dieulafoy's lesion, an angiodysplasia, or some ulcers that are not really causing too much in the way of classical peptic ulcer disease symptoms. I would be hesitant to proceed with a colonoscopy until we have more obvious evidence that the patient is bleeding from the lower GI tract. HISTORY OF PRESENT ILLNESS: The patient is an 86-year-old lady who I believe has a primary care physician of Dr. Jose Ramon Barnett. The patient recently had surgery on her right hip by Dr. Kyle Kign. The patient did have some bleeding. She was somewhat hypotensive. Dr. Yancey, hospitalist internal medicine physician, was consulted. IMAGING: I believe CAT scan was not impressive enough to strongly suggest that the hematoma seen would totally explain the blood loss. The patient is on PPI medication. She has had reflux symptoms. She does have some abdominal pain or low chest pain. Endoscopy was indicated to evaluate for pathology in the upper gastrointestinal tract that may explain her symptoms. When I evaluated the patient, she denied nausea and vomiting. She denied reflux at this time but admitted she has had reflux in the past. She denies dysphagia. She has not had a bowel movement for a few days, probably in part because of the surgery and change in diet and activity and perhaps narcotics. She does not have a chronic problem with constipation. She denies melena, hematochezia or diarrhea. PAST MEDICAL HISTORY: Does include gastroesophageal reflux disease, degenerative joint disease, recent hip fracture and surgical treatment and there is some question about whether she has asthma. PAST SURGICAL HISTORY: Right hip fracture about a year ago. I believe she has recently had surgery on the left hip with the failed gamma nail and open reduction and internal fixation of the fracture with a " CURRENT MEDICATIONS: Please see list found elsewhere in the chart, such as Dr. Yancey's consultation. I believe this does include: Omeprazole 20 mg a day. Albuterol. Lisinopril. Many other medications. She is on hydrocodone. ALLERGIES: NO KNOWN DRUG ALLERGIES per report. HABITS: Smoking: None. Alcohol: None. Coffee, caffeinated beverages: Usually a cup a day. REVIEW OF SYSTEMS: Genitourinary: No complaints of pain or burning on urination. Respiratory: No significant complaints of a cough at this time. PHYSICAL EXAMINATION: VITAL SIGNS: Pulse was about 108, respirations about 18, blood pressure 138/55, pulse oximetry is 97. Weight 144 pounds. LUNGS: Clear. No wheezes noted. HEART: Regular, but tachycardic. No murmurs noted. ABDOMEN: Soft. Bowel sounds are present. Nontender to mild palpation. Spleen was not palpable. Liver span is around 6 cm at midclavicular line. LABORATORY STUDIES: Hemoglobin was 12.4 at one time, drifted down to 8.4. I believe she has received some blood in transfusion. Most recent hemoglobin was about 10.4. MCV was around 96.8. Reticulocyte count was perhaps low for the degree of anemia at 1.8. This may suggest an element of bone marrow hypofunction, perhaps because of her age. INR was 1.2. Iron was about 32. Ferritin was high at 3448, probably acute phase reactant. Chemistry panel: Sodium is 132, potassium 4.4, chloride 101, CO2 is 22, BUN is about 17, creatinine 0.4, vitamin B12 level was 877. Folate was 13.7. CRD:kdesther Job ID: [id number] Doc ID: [id number] Clayton King MD
[2017-01-21] MEDS: SENNOSIDES 1 TABLET PO SCH (22:25)
[2017-01-22] MEDS: 0.9 % SODIUM CHLORIDE 10 ML SYRINGE IV SCH ×4 (00:32→21:11)
[2017-01-22 02:28] LABS: Basophils # (Auto) 0 K/mcL (0.0-0.3); Basophils % (Auto) 0.1 % (0.0-2.0); Eosinophils # (Auto) 0 K/mcL (0.0-0.7); Eosinophils % (Auto) 0.1 % (0.0-7.0); Lymphocytes # (Auto) 1.1 K/mcL (1.5-4.8); Lymphocytes % (Auto) 7.1 % (15.5-49.0); Mean Corpuscular HGB Conc 34.1 g/dL (31.0-36.0); Mean Corpuscular Hemoglobin 31.7 pg (26.0-34.0); Monocytes # (Auto) 1.2 K/mcL (0.1-0.9); Monocytes % (Auto) 7.7 % (1.0-12.0); Platelet Count 142 K/mcL (140-440); RBC 3.18 M/mcL (4.00-5.20); Red Cell Distribution Width 17.2 % (11.5-14.5)
[2017-01-22 02:43] LABS: ALT/SGPT 14 U/l (0-40); Albumin 2.2 gm/dL (3.2-5.2); Alkaline Phosphatase 62 U/L (39-117); Bilirubin,Direct 0.3 mg/dL (0.0-0.3); Blood Urea Nitrogen 17 mg/dl (8-23); Gamma Glutamyl Transpeptidase 13 U/L (5-36); Magnesium 1.9 mg/dL (1.6-2.5)
--- NOTE | 2017-01-22 06:46 | Operative Note ---
DATE OF OPERATION: 01/21/2017 PREPROCEDURE DIAGNOSIS: Anemia,? upper gastrointestinal bleeding. POSTPROCEDURE DIAGNOSES: 1. Gastritis, minimal EGitis. 2. EGitis,? reflux. 3. Hiatal hernia. No pathology found in upper GI tract to explain bleeding. ADDITIONAL COMMENTS: Bleeding is probably from the hip surgery site and it is possible the bone marrow may not be functioning ideally. PROCEDURE: Esophagogastroduodenoscopy with biopsy. INSTRUMENT USED: Olympus LIV [id number] endoscope. SPECIMENS OBTAINED: Biopsies from antrum for histopathology including checking for Helicobacter. Biopsies from distal esophagus,? reflux. INDICATIONS FOR PROCEDURE: The patient is an 86-year-old lady who had hip surgery, I believe on the left with Dr. King. The patient's primary care provider, I believe, is Dr. Barnett. The patient was admitted to the hospital under the courtesy of Dr. Yancey. She has had some bleeding around the hip surgery site. Hemoglobin did drop a fair amount, I believe from 12.4 to 8.4. I believe she has gotten some blood in transfusion. She does have some upper abdominal pain. She has had reflux in the past but denies reflux recently. She denies nausea and vomiting. She has not had a bowel movement for a few days, but this is probably associated with the hip surgery and perhaps narcotics. She denies constipation on a regular basis. Endoscopy is indicated to evaluate for an asymptomatic ulcer or other pathology that may contribute to some bleeding. A Dieulafoy's lesion or angiodysplasia also could be bleeding and those usually would not cause any symptoms such as pain or nausea. INFORMED CONSENT: The procedure was reviewed with the patient. The patient had no further questions and accepts the risks and benefits thereof. One of the risks that were discussed included . Additional risks that were also discussed included bleeding, reaction to medication, possible perforation and possible need for surgery. IV MEDICATIONS USED: Versed 1 and propofol 30. FINDINGS: ESOPHAGUS: Proximal, mid and distal esophagus normal. EG JUNCTION: There was some minimal erythema at the EG junction. This was at 35 cm. There was a hiatal hernia down to 37 cm. STOMACH: Cardia, fundus and body normal. Antrum: There were a few areas of minimal erythema and edema noted. Biopsies were taken for histopathology primarily to check for Helicobacter. PYLORUS: Normal. DUODENUM: This appeared normal. No angiodysplasia were seen. No suggestion of celiac disease was noted. RECOMMENDATIONS: Antireflux measures as tolerated. I would recommend a PPI medication for 1 or 2 months and then try to discontinue the PPI medication. The patient should be observed for any signs or symptoms of significant lower GI bleeding. If she does have some obvious lower GI bleeding that is in a significant amount, colonoscopy may be necessary. Currently, I feel the hassle or negative effects of a colonoscopy outweigh any potential benefit. However, if she does have some obvious bright red blood per rectum of significant quantity, colonoscopy may be necessary. CRD:kh Job ID: [id number] Doc ID: [id number] Clayton King MD
[2017-01-22] MEDS: METOCLOPRAMIDE 10 MG TABLET PO SCH ×4 (09:20→21:11)
[2017-01-22] MEDS: LACTOBACILLUS 1 CAPSULE PO SCH (09:20)
[2017-01-22] MEDS: CALCIUM (OYSTER SHELL) 500 MG TABLET PO SCH ×2 (09:21→21:10)
[2017-01-22] MEDS: MULTIVIT,THER IRON,CA,FA & MIN 1 TABLET PO SCH (09:21)
[2017-01-22] MEDS: HYDROcodone/APAP 10/325MG TABLET PO PRN ×2 (09:21→22:30)
[2017-01-22] MEDS: POLYETHYLENE GLYCOL 3350 17 GM PACKET PO SCH (09:22)
[2017-01-22] MEDS: PANTOPRAZOLE 40 MG VIAL IV SCH (09:22)
[2017-01-22] MEDS: DOCUSATE SODIUM 100 MG CAPSULE PO SCH (09:22)
[2017-01-22] MEDS: ARGININE PO SCH (09:22)
[2017-01-22] MEDS: VITAMIN D3 400 UNIT TABLET PO SCH ×2 (09:22→21:11)
[2017-01-22] MEDS ORDERED: MAGNESIUM HYDROXIDE 30 ML ORAL.SUSP PO ONE (11:22)
--- NOTE | 2017-01-22 11:22 | Internal Med Progress Note ---
Medical - PN: Subj Patient information: Note initiated : 01/22/17 at 11:18 am Service Date, if different from initiated Date: [] Patient: Radha Frost 86 y/o F admitted on 01/19/17 for Pain Control. Chief Complaint: [] Interval history: Pt seen examined, no acute overnight issues notes of pain in the lft hip hb improved and has remained stable did receive some IVF today which helped she had received 2 units of blood before coming to [facility] which I am not sure why. monitor hb for now, if remains stable, likely related to surgery and hip fracture. if hb continues to drop will need to consider alternative etiology for blood loss. Jan 21: patient seen examined, overnight the patients hb continued to drop, it had dropped to 8.2 today, she is tachcyardic adn feels a bit dizzy. She has not yet had a bm CT abdomen does not reveal any retroperitoneal bleed, she has a normal BUN CT hip shows some hemorrage, but not a lot as per radiology Will plan to get GI eval to see if any ongoing GI loss? transfuse 2 more units of prbc d/c asa start on SCD for DVT prophylaxis. IV PPI for now Fleets enema to help with BM continue to monitor closely try to get PICC line if no good IV access. Jan 22 Patient seen examined, no acute overnight issues, removed IV, which was placed in Right EJ again, no other concerns or complaints her Hb dropped by 1 grm overnight, hemodynamically stable EGD is negative, reviewed the case with Dr barry, we think its the left leg where she is bleeding into, not much to be done except to transfuse he is ok with holding ASA bid for now for DVT given ongoing bleed at the surgical site. BP is stable Pertinent ROS: Denies headache, dizziness Denies chest pain, palpitations Denies cough or shortness of breath Denies abdominal pain, nausea or vomiting. - Constitutional Vitals: Vital Signs Temp Pulse Resp BP Pulse Ox 97.8 F 92 H 18 151/60 96 01/22/17 08:00 01/22/17 04:02 01/22/17 08:00 01/22/17 08:00 01/22/17 08:00 Period Temp Pulse Resp BP Sys/Sandoval Pulse Ox Last 24 Hr 97.8 F-98.6 F 92-108 16-20 115-160/44-126 89-100 Intake and Output 01/21/17 01/22/17 01/22/17 21:59 05:59 13:59 Intake Total 2104 / 2104 Output Total 850 / 850 200 / 200 Balance 1254 / 1254 -200 / -200 Weight 163 lb 9.6 oz Intake & Output: Intake & Output 01/21/17 01/22/17 01/22/17 21:59 05:59 13:59 Intake Total 2104 / 2104 Output Total 850 / 850 200 / 200 Balance 1254 / 1254 -200 / -200 Weight 163 lb 9.6 oz Intake: IV 2103 Sodium Chloride 0.9% 1,000 ml @ 104 / 104 20 mls/hr IV .Q24H [facility] Rx#: [id number] Output: Urine Catheter Amount 850 / 850 200 / 200 Exam: Constitutional; Afebrile, cooperative, alert, not in distress. Eyes- No icterus, , No periorbital swelling Ears- Ext ear normal, hearing normal to conversation. Neck- Midline trachea, supple Respiratory system: Air Entry equal on both sides, No crackles or wheezing, no rhonchi. CVS- Rate rhythm regular, S1,S2 heard, no gallop, no rub. Abdomen- Soft nontender abdomen, no organomegaly, no tenderness, no guarding or rigidity, [employer] IN[employer]CTOR- AOOx3, moving all extremities, no gross focal deficit noted. Medical - PN: Obj Da - Labs CBC & Chem 7: 01/22/17 08:20 01/22/17 01:00 Labs: Abnormal Lab Results 01/22/17 01/22/17 01/22/17 08:20 04:00 01:00 WBC RBC Hgb 9.2 L 9.1 L Hct 27.2 L 27.2 L POC Hct RDW Gran % Lymph % (Auto) Gran # Lymph # (Auto) [place] # (Auto) Absolute Retic POC Sodium Sodium 132 L Chloride Carbon Dioxide Creatinine 0.4 L POC Creatinine Glucose POC Glucose Calcium 7.9 L POC WB Ioniz Calcium Phosphorus 2.1 L Magnesium Iron TIBC Unsat Iron Binding Ferritin Total Bilirubin Total Protein 4.4 L Albumin 2.2 L Globulin 01/22/17 01/21/17 01/21/17 01:00 21:05 16:54 WBC 15.6 H RBC 3.18 L Hgb 10.1 L 10.2 L 10.4 L Hct 29.5 L 29.9 L 30.3 L POC Hct RDW 17.2 H Gran % 85.0 H Lymph % (Auto) 7.1 L Gran # 13.3 H Lymph # (Auto) 1.1 L [place] # (Auto) 1.2 H Absolute Retic POC Sodium Sodium Chloride Carbon Dioxide Creatinine POC Creatinine Glucose POC Glucose Calcium POC WB Ioniz Calcium Phosphorus Magnesium Iron TIBC Unsat Iron Binding Ferritin Total Bilirubin Total Protein Albumin Globulin 01/21/17 01/21/17 01/21/17 06:40 06:40 06:40 WBC 17.0 H RBC 2.57 L Hgb 8.4 L Hct 24.8 L POC Hct RDW 17.3 H Gran % 88.0 H Lymph % (Auto) 5.1 L Gran # 14.9 H Lymph # (Auto) 0.9 L [place] # (Auto) 1.1 H Absolute Retic 1.8 H POC Sodium Sodium 132 L Chloride Carbon Dioxide Creatinine 0.4 L POC Creatinine Glucose 111 H POC Glucose Calcium 7.4 L POC WB Ioniz Calcium Phosphorus 2.6 L Magnesium Iron 32 L TIBC 114 L Unsat Iron Binding 82 L Ferritin 3448.0 H Total Bilirubin Total Protein 3.6 L Albumin 2.2 L Globulin 1.4 L 01/20/17 01/20/17 01/20/17 21:45 21:45 19:32 WBC 14.1 H RBC 2.73 L Hgb 8.9 L 9.7 L Hct 26.4 L 27.9 L POC Hct RDW 17.0 H Gran % 85.6 H Lymph % (Auto) 7.5 L Gran # 12.0 H Lymph # (Auto) 1.1 L [place] # (Auto) 1.0 H Absolute Retic POC Sodium Sodium 127 L Chloride 94 L Carbon Dioxide 21 L Creatinine POC Creatinine Glucose 133 H POC Glucose Calcium 7.2 L POC WB Ioniz Calcium Phosphorus Magnesium Iron TIBC Unsat Iron Binding Ferritin Total Bilirubin Total Protein Albumin Globulin 01/20/17 01/20/17 01/20/17 15:00 10:00 04:00 WBC RBC Hgb 10.2 L 10.9 L Hct 30.0 L 31.8 L POC Hct RDW Gran % Lymph % (Auto) Gran # Lymph # (Auto) [place] # (Auto) Absolute Retic POC Sodium Sodium Chloride Carbon Dioxide 20 L Creatinine 0.4 L POC Creatinine Glucose 112 H POC Glucose Calcium 7.5 L POC WB Ioniz Calcium Phosphorus Magnesium Iron TIBC Unsat Iron Binding Ferritin Total Bilirubin 1.8 H Total Protein 4.0 L Albumin 2.3 L Globulin 1.7 L 01/20/17 01/19/17 01/19/17 04:00 20:03 01:25 WBC 13.2 H RBC 3.81 L Hgb Hct POC Hct 25.0 L RDW 17.1 H Gran % 85.7 H Lymph % (Auto) 6.3 L Gran # 11.3 H Lymph # (Auto) 0.8 L [place] # (Auto) 1.0 H Absolute Retic POC Sodium 131 L Sodium 129 L Chloride Carbon Dioxide 21 L Creatinine 0.4 L POC Creatinine 0.5 L Glucose 122 H POC Glucose 135 H Calcium 7.2 L POC WB Ioniz Calcium 1.08 L Phosphorus Magnesium 1.2 L Iron TIBC Unsat Iron Binding Ferritin Total Bilirubin 1.6 H Total Protein 3.6 L Albumin 2.2 L Globulin 1.4 L 01/19/17 01:25 WBC 18.0 H RBC 3.76 L Hgb Hct POC Hct RDW 16.7 H Gran % 88.9 H Lymph % (Auto) 4.3 L Gran # 16.0 H Lymph # (Auto) 0.8 L [place] # (Auto) 1.2 H Absolute Retic POC Sodium Sodium Chloride Carbon Dioxide Creatinine POC Creatinine Glucose POC Glucose Calcium POC WB Ioniz Calcium Phosphorus Magnesium Iron TIBC Unsat Iron Binding Ferritin Total Bilirubin Total Protein Albumin Globulin Meds: Medications Acetaminophen (Tylenol) 650 mg PO Q6HP PRN PRN Reason: PAIN/FEVER > 101 Last Admin: 01/21/17 08:36 Dose: 650 mg Hydrocodone Bitart/Acetaminophen ([place] 10/325mg) 0 tab PO Q4HP PRN PRN Reason: PAIN LEVEL 3-6 Last Admin: 01/22/17 09:21 Dose: 1 tab Albuterol Sulfate (Ventolin) 1 puff INH Q4HP PRN PRN Reason: Bronchodilation Bisacodyl (Dulcolax) [address] Q2-3DAYS PRN PRN Reason: Constipation Calcium Carbonate/Glycine (Oscal) 500 mg PO BID [facility] Last Admin: 01/22/17 09:21 Dose: 500 mg Diphenhydramine HCl (Benadryl) 25 mg PO HSP PRN PRN Reason: Sleep Docusate Sodium (Colace) 200 mg PO DAILY [facility] Last Admin: 01/22/17 09:22 Dose: 200 mg Hydromorphone HCl (Dilaudid) 0 mg IV Q2HP PRN PRN Reason: PAIN LEVEL > 6 Last Admin: 01/21/17 00:21 Dose: 0.4 mg Acetaminophen (Ofirmev) 650 mg in 65 mls @ 130 mls/hr IV Q6HP PRN PRN Reason: Pain/Fever > 101/chills Iron Carb/Multivit/[place]/Folic Acid (Multivitamin W/Minerals) 1 tab PO DAILY [facility] Last Admin: 01/22/17 09:21 Dose: 1 tab Lactobacillus Rhamnosus (Culturelle) 1 cap PO DAILY [facility] Last Admin: 01/22/17 09:20 Dose: 1 cap Magnesium Hydroxide (Milk Of Magnesia) 30 ml PO BIDP PRN PRN Reason: Constipation Metoclopramide HCl (Reglan) 2.5 mg PO ACHS [facility] Last Admin: 01/22/17 09:20 Dose: 2.5 mg Ondansetron HCl (Zofran) 4 mg IV Q4HP PRN PRN Reason: Nausea And Vomiting Last Admin: 01/20/17 19:26 Dose: 4 mg Pantoprazole Sodium (Protonix) 40 mg IV BIDAC [facility] Last Admin: 01/22/17 09:22 Dose: 40 mg Chlorpheniramine Maleate [Chlor- Trimeton] Tablet 1 dose PO Q4HP PRN PRN Reason: Allergy Symptoms Arginine [L-Arginine (] Tablet) 1 dose PO DAILY [facility] Last Admin: 01/22/17 09:22 Dose: Not Given Polyethylene Glycol (Miralax) 17 gm PO DAILY [facility] Last Admin: 01/22/17 09:22 Dose: 17 gm Pseudoephedrine HCl (Sudafed) 30 mg PO Q12HP PRN PRN Reason: Allergy Symptoms Senna (Senokot) 2 tab PO HS [facility] Last Admin: 01/21/17 22:25 Dose: 2 tab Sodium Biphosphate/Sodium Phosphate (Fleets Adult) [address] Q3-4DAYS PRN PRN Reason: Constipation Sodium Chloride (Saline Flush) 10 ml IV Q8 [facility] Last Admin: 01/22/17 05:43 Dose: 10 ml Temazepam (Restoril) 15 mg PO HSP PRN PRN Reason: Insomnia Last Admin: 01/20/17 20:59 Dose: 15 mg Throat Lozenges (Cepacol) 1 lozenge PO PRN PRN PRN Reason: Sore Throat Vitamin D (Vitamin D3) 400 unit PO BID [facility] Last Admin: 01/22/17 09:22 Dose: Not Given Medical - PN: A/P - Time Spent With Patient Total time spent is greater than 50% in coordination of care (as documented) at patient's floor/unit and/or counseling patient: - Narrative A/P Narrative: A/P Acute blood loss anemia: due to intraop / fracture related blood loss, hb trending down slowly again. monitor serial h/h, if stable can d/c to swing bed bp is stable. constipatin, daily miralax, add milk of magnesia today, GERD resume oral prilosec. no e/o GI bleed noted. Very low suspicion of lower GI BLEED Right femur fracture/ s/p failed gamma nail: Management as per ortho. DVT scd for now given concern for bleed, resume dvt prophylaxis if no obvious bleed noted.
[2017-01-22] MEDS ORDERED: TRANEXAMIC ACID 1,000 MG/10 ML VIAL IV ONE (15:00)
[2017-01-22] MEDS ORDERED: OMEPRAZOLE 20 MG CAPSULE PO SCH (17:00)
[2017-01-22] MEDS: SENNOSIDES 1 TABLET PO SCH (21:10)
[2017-01-22] MEDS: HYDROmorphone 2 MG/ML SYRINGE IV PRN (22:20)
[2017-01-22 23:31] LABS: Appearance,Urine CLEAR; Bacteria,Urine 0 /hpf (0); Bilirubin,Urine NEG (NEG); Color,Urine AMBER; Glucose,Urine (UA) NEGATIVE (NEG); Leukocyte Esterase,Urine 25 /uL (NEG); Mucus,Urine MOD /hpf (0); Nitrate,Urine NEG (NEG); Protein,Urine 30 mg/dL (NEG); Specific Gravity,Urine 1.027 (1.000-1.035); Urine Blood NEG mg/dL (<0.03); Urine Hyaline Cast 7 /lpf (0-2); Urine RBC 4 /hpf (0-1); Urine Squamous Epithelial Cell 0 /hpf (0-4); Urine Transitional Epi Cells < 1 /hpf (0-2); Urine WBC 7 /hpf (0-4); Urobilinogen,Urine NEG (NEG)
[2017-01-23] MEDS ORDERED: 0.9 % SODIUM CHLORIDE 250 ML IV SCH (01:15)
[2017-01-23] MEDS ORDERED: FUROSEMIDE 20 MG/2 ML VIAL IV ONE ×2 (05:11→05:35)
[2017-01-23] MEDS: 0.9 % SODIUM CHLORIDE 10 ML SYRINGE IV SCH ×3 (05:27→22:01)
[2017-01-23 06:08] LABS: Basophils # (Auto) 0 K/mcL (0.0-0.3); Basophils % (Auto) 0.2 % (0.0-2.0); Eosinophils # (Auto) 0 K/mcL (0.0-0.7); Eosinophils % (Auto) 0.1 % (0.0-7.0); Granulocytes % (Auto) 82.6 % (38.0-78.0); Lymphocytes # (Auto) 0.7 K/mcL (1.5-4.8); Lymphocytes % (Auto) 6.9 % (15.5-49.0); Mean Cell Volume 95.3 fL (80.0-100.0); Mean Corpuscular HGB Conc 33.6 g/dL (31.0-36.0); Monocytes # (Auto) 1.1 K/mcL (0.1-0.9); Monocytes % (Auto) 10.2 % (1.0-12.0); Platelet Count 131 K/mcL (140-440); RBC 2.44 M/mcL (4.00-5.20); Red Cell Distribution Width 16.8 % (11.5-14.5)
[2017-01-23 06:33] LABS: ALT/SGPT 23 U/l (0-40); Albumin 1.9 gm/dL (3.2-5.2); Albumin/Globulin Ratio 0.8 (1.0-2.3); Alkaline Phosphatase 64 U/L (39-117); Bilirubin,Direct < 0.2 mg/dL (0.0-0.3); Blood Urea Nitrogen 19 mg/dl (8-23); Gamma Glutamyl Transpeptidase 17 U/L (5-36); Magnesium 1.9 mg/dL (1.6-2.5); Uric Acid 4.4 mg/dL (2.5-8.0)
--- NOTE | 2017-01-23 06:51 | Internal Med Progress Note ---
Medical - PN: Subj Patient information: Note initiated : 01/23/17 at 6:48 am Service Date, if different from initiated Date: [] Patient: Radha Frost 86 y/o F admitted on 01/19/17 for Pain Control. Chief Complaint: [] Interval history: Pt seen examined, no acute overnight issues notes of pain in the lft hip hb improved and has remained stable did receive some IVF today which helped she had received 2 units of blood before coming to [facility] which I am not sure why. monitor hb for now, if remains stable, likely related to surgery and hip fracture. if hb continues to drop will need to consider alternative etiology for blood loss. Jan 21: patient seen examined, overnight the patients hb continued to drop, it had dropped to 8.2 today, she is tachcyardic adn feels a bit dizzy. She has not yet had a bm CT abdomen does not reveal any retroperitoneal bleed, she has a normal BUN CT hip shows some hemorrage, but not a lot as per radiology Will plan to get GI eval to see if any ongoing GI loss? transfuse 2 more units of prbc d/c asa start on SCD for DVT prophylaxis. IV PPI for now Fleets enema to help with BM continue to monitor closely try to get PICC line if no good IV access. Jan 22 Patient seen examined, no acute overnight issues, removed IV, which was placed in Right EJ again, no other concerns or complaints her Hb dropped by 1 grm overnight, hemodynamically stable EGD is negative, reviewed the case with Dr barry, we think its the left leg where she is bleeding into, not much to be done except to transfuse he is ok with holding ASA bid for now for DVT given ongoing bleed at the surgical site. BP is stable Jan 23 patient seen examined no acute overnight issues, bp stable, hb has remained stable since yesterday pm NA dropped to 128, workup sent ua suggestive of UTI, started on rocephin for now cultures pending given stability of bp, and hb, and no source of bleed besides the left thigh, will xfer to med surg status. PT was positive 5L now, somewhat fluid overloaded, give one dose of lasix and see how she does. Pertinent ROS: Denies headache, dizziness Denies chest pain, palpitations Denies cough or shortness of breath Denies abdominal pain, nausea or vomiting. - Constitutional Vitals: Vital Signs Temp Pulse Resp BP Pulse Ox 97.6 F 88 12 127/56 95 01/23/17 04:01 01/23/17 04:01 01/23/17 04:01 01/23/17 04:01 01/23/17 04:01 Period Temp Pulse Resp BP Sys/Sandoval Pulse Ox Last 24 Hr 97.6 F-99.7 F 87-107 12-18 116-159/45-127 93-100 Intake and Output 01/22/17 01/23/17 01/23/17 21:59 05:59 13:59 Intake Total 390 / 390 300 / 300 Output Total 350 / 350 250 / 250 Balance 40 / 40 50 / 50 Weight 164 lb 11.2 oz Intake & Output: Intake & Output 01/22/17 01/23/17 01/23/17 21:59 05:59 13:59 Intake Total 390 / 390 300 / 300 Output Total 350 / 350 250 / 250 Balance 40 / 40 50 / 50 Weight 164 lb 11.2 oz Intake: Oral 390 / 390 300 / 300 Output: Urine Catheter Amount 350 / 350 250 / 250 Other: Meal orange juice Exam: Constitutional; Afebrile, cooperative, alert, not in distress. Eyes- No icterus, , No periorbital swelling Ears- Ext ear normal, hearing normal to conversation. Neck- Midline trachea, supple Respiratory system: Air Entry equal on both sides, No crackles or wheezing, no rhonchi. CVS- Rate rhythm regular, S1,S2 heard, no gallop, no rub. Abdomen- Soft nontender abdomen, no organomegaly, no tenderness, no guarding or rigidity, BONE CRUSHER- AOOx3, moving all extremities, no gross focal deficit noted. Medical - PN: Obj Da - Labs CBC & Chem 7: 01/23/17 04:23 01/23/17 04:23 Labs: Abnormal Lab Results 01/23/17 01/23/17 01/23/17 05:30 04:23 04:23 WBC RBC 2.44 L Hgb 7.8 L Hct 23.2 L RDW 16.8 H Plt Count 131 L Gran % 82.6 H Lymph % (Auto) 6.9 L Gran # 8.8 H Lymph # (Auto) 0.7 L [place] # (Auto) 1.1 H Absolute Retic Sodium 128 L Chloride Carbon Dioxide Creatinine 0.5 L Glucose Calcium 8.0 L Phosphorus 1.8 L Iron TIBC Unsat Iron Binding Ferritin Total Bilirubin AST 40 H Total Creatine Kinase 364 H Total Protein 4.4 L Albumin 1.9 L Globulin Albumin/Globulin Ratio 0.8 L Urine Protein Ur Leukocyte Esterase Urine RBC Urine WBC Hyaline Casts 01/23/17 01/22/17 01/22/17 01:15 22:40 20:02 WBC RBC Hgb 7.6 L 7.7 L Hct 22.4 L 22.7 L RDW Plt Count Gran % Lymph % (Auto) Gran # Lymph # (Auto) [place] # (Auto) Absolute Retic Sodium Chloride Carbon Dioxide Creatinine Glucose Calcium Phosphorus Iron TIBC Unsat Iron Binding Ferritin Total Bilirubin AST Total Creatine Kinase Total Protein Albumin Globulin Albumin/Globulin Ratio Urine Protein 30 A Ur Leukocyte Esterase 25 A Urine RBC 4 H Urine WBC 7 H Hyaline Casts 7 H 01/22/17 01/22/17 01/22/17 15:56 12:05 08:20 WBC RBC Hgb 8.4 L 8.7 L 9.2 L Hct 24.7 L 25.6 L 27.2 L RDW Plt Count Gran % Lymph % (Auto) Gran # Lymph # (Auto) [place] # (Auto) Absolute Retic Sodium Chloride Carbon Dioxide Creatinine Glucose Calcium Phosphorus Iron TIBC Unsat Iron Binding Ferritin Total Bilirubin AST Total Creatine Kinase Total Protein Albumin Globulin Albumin/Globulin Ratio Urine Protein Ur Leukocyte Esterase Urine RBC Urine WBC Hyaline Casts 01/22/17 01/22/17 01/22/17 04:00 01:00 01:00 WBC 15.6 H RBC 3.18 L Hgb 9.1 L 10.1 L Hct 27.2 L 29.5 L RDW 17.2 H Plt Count Gran % 85.0 H Lymph % (Auto) 7.1 L Gran # 13.3 H Lymph # (Auto) 1.1 L [place] # (Auto) 1.2 H Absolute Retic Sodium 132 L Chloride Carbon Dioxide Creatinine 0.4 L Glucose Calcium 7.9 L Phosphorus 2.1 L Iron TIBC Unsat Iron Binding Ferritin Total Bilirubin AST Total Creatine Kinase Total Protein 4.4 L Albumin 2.2 L Globulin Albumin/Globulin Ratio Urine Protein Ur Leukocyte Esterase Urine RBC Urine WBC Hyaline Casts 01/21/17 01/21/17 01/21/17 21:05 16:54 06:40 WBC RBC Hgb 10.2 L 10.4 L Hct 29.9 L 30.3 L RDW Plt Count Gran % Lymph % (Auto) Gran # Lymph # (Auto) [place] # (Auto) Absolute Retic 1.8 H Sodium Chloride Carbon Dioxide Creatinine Glucose Calcium Phosphorus Iron TIBC Unsat Iron Binding Ferritin Total Bilirubin AST Total Creatine Kinase Total Protein Albumin Globulin Albumin/Globulin Ratio Urine Protein Ur Leukocyte Esterase Urine RBC Urine WBC Hyaline Casts 01/21/17 01/21/17 01/20/17 06:40 06:40 21:45 WBC 17.0 H RBC 2.57 L Hgb 8.4 L Hct 24.8 L RDW 17.3 H Plt Count Gran % 88.0 H Lymph % (Auto) 5.1 L Gran # 14.9 H Lymph # (Auto) 0.9 L [place] # (Auto) 1.1 H Absolute Retic Sodium 132 L 127 L Chloride 94 L Carbon Dioxide 21 L Creatinine 0.4 L Glucose 111 H 133 H Calcium 7.4 L 7.2 L Phosphorus 2.6 L Iron 32 L TIBC 114 L Unsat Iron Binding 82 L Ferritin 3448.0 H Total Bilirubin AST Total Creatine Kinase Total Protein 3.6 L Albumin 2.2 L Globulin 1.4 L Albumin/Globulin Ratio Urine Protein Ur Leukocyte Esterase Urine RBC Urine WBC Hyaline Casts 01/20/17 01/20/17 01/20/17 21:45 19:32 15:00 WBC 14.1 H RBC 2.73 L Hgb 8.9 L 9.7 L 10.2 L Hct 26.4 L 27.9 L 30.0 L RDW 17.0 H Plt Count Gran % 85.6 H Lymph % (Auto) 7.5 L Gran # 12.0 H Lymph # (Auto) 1.1 L [place] # (Auto) 1.0 H Absolute Retic Sodium Chloride Carbon Dioxide Creatinine Glucose Calcium Phosphorus Iron TIBC Unsat Iron Binding Ferritin Total Bilirubin AST Total Creatine Kinase Total Protein Albumin Globulin Albumin/Globulin Ratio Urine Protein Ur Leukocyte Esterase Urine RBC Urine WBC Hyaline Casts 01/20/17 01/20/17 10:00 04:00 WBC RBC Hgb 10.9 L Hct 31.8 L RDW Plt Count Gran % Lymph % (Auto) Gran # Lymph # (Auto) [place] # (Auto) Absolute Retic Sodium Chloride Carbon Dioxide 20 L Creatinine 0.4 L Glucose 112 H Calcium 7.5 L Phosphorus Iron TIBC Unsat Iron Binding Ferritin Total Bilirubin 1.8 H AST Total Creatine Kinase Total Protein 4.0 L Albumin 2.3 L Globulin 1.7 L Albumin/Globulin Ratio Urine Protein Ur Leukocyte Esterase Urine RBC Urine WBC Hyaline Casts Meds: Medications Acetaminophen (Tylenol) 650 mg PO Q6HP PRN PRN Reason: PAIN/FEVER > 101 Last Admin: 01/21/17 08:36 Dose: 650 mg Hydrocodone Bitart/Acetaminophen ([place] 10/325mg) 0 tab PO Q4HP PRN PRN Reason: PAIN LEVEL 3-6 Last Admin: 01/22/17 22:30 Dose: 1 tab Albuterol Sulfate (Ventolin) 1 puff INH Q4HP PRN PRN Reason: Bronchodilation Bisacodyl (Dulcolax) 10 mg [place] Q2-3DAYS PRN PRN Reason: Constipation Calcium Carbonate/Glycine (Oscal) 500 mg PO BID [facility] Last Admin: 01/22/17 21:10 Dose: 500 mg Ceftriaxone Sodium (Rocephin) 1 gm IV Q24H [facility] Diphenhydramine HCl (Benadryl) 25 mg PO HSP PRN PRN Reason: Sleep Docusate Sodium (Colace) 200 mg PO DAILY [facility] Last Admin: 01/22/17 09:22 Dose: 200 mg Hydromorphone HCl (Dilaudid) 0 mg IV Q2HP PRN PRN Reason: PAIN LEVEL > 6 Last Admin: 01/22/17 22:20 Dose: 0.4 mg Acetaminophen (Ofirmev) 650 mg in 65 mls @ 130 mls/hr IV Q6HP PRN PRN Reason: Pain/Fever > 101/chills Iron Carb/Multivit/[place]/Folic Acid (Multivitamin W/Minerals) 1 tab PO DAILY [facility] Last Admin: 01/22/17 09:21 Dose: 1 tab Lactobacillus Rhamnosus (Culturelle) 1 cap PO DAILY [facility] Last Admin: 01/22/17 09:20 Dose: 1 cap Magnesium Hydroxide (Milk Of Magnesia) 30 ml PO BIDP PRN PRN Reason: Constipation Metoclopramide HCl (Reglan) 2.5 mg PO ACHS [facility] Last Admin: 01/22/17 21:11 Dose: 2.5 mg Omeprazole (Prilosec) 20 mg PO BIDAC [facility] Last Admin: 01/22/17 18:51 Dose: 20 mg Ondansetron HCl (Zofran) 4 mg IV Q4HP PRN PRN Reason: Nausea And Vomiting Last Admin: 01/20/17 19:26 Dose: 4 mg Chlorpheniramine Maleate [Chlor- Trimeton] Tablet 1 dose PO Q4HP PRN PRN Reason: Allergy Symptoms Arginine [L-Arginine (] Tablet) 1 dose PO DAILY [facility] Last Admin: 01/22/17 09:22 Dose: Not Given Polyethylene Glycol (Miralax) 17 gm PO DAILY [facility] Last Admin: 01/22/17 09:22 Dose: 17 gm Pseudoephedrine HCl (Sudafed) 30 mg PO Q12HP PRN PRN Reason: Allergy Symptoms Senna (Senokot) 2 tab PO HS [facility] Last Admin: 01/22/17 21:10 Dose: 2 tab Sodium Biphosphate/Sodium Phosphate (Fleets Adult) 1 dose [place] Q3-4DAYS PRN PRN Reason: Constipation Sodium Chloride (Saline Flush) 10 ml IV Q8 [facility] Last Admin: 01/23/17 05:27 Dose: 10 ml Temazepam (Restoril) 15 mg PO HSP PRN PRN Reason: Insomnia Last Admin: 01/20/17 20:59 Dose: 15 mg Throat Lozenges (Cepacol) 1 lozenge PO PRN PRN PRN Reason: Sore Throat Last Admin: 01/22/17 22:28 Dose: 1 lozenge Vitamin D (Vitamin D3) 400 unit PO BID [facility] Last Admin: 01/22/17 21:11 Dose: Not Given Medical - PN: A/P - Time Spent With Patient Total time spent is greater than 50% in coordination of care (as documented) at patient's floor/unit and/or counseling patient: - Narrative A/P Narrative: A/P Acute blood loss anemia: due to intraop / fracture related blood loss, hb trending down slowly again but has remained stable since yesterday 1g tranxemic acid given yesterday. off asa 325 bid (was being used for dvt prophylaxis). monitor serial h/h, bp is stable. xfer to med surg status Hyponatremia: Due to fluid overload? send urine and serum osm, check urine sodium, monitor Na is 128, was around 132 before. constipatin, daily miralax, add milk of magnesia today, GERD resume oral prilosec. no e/o GI bleed noted. Very low suspicion of lower GI BLEED Right femur fracture/ s/p failed gamma nail: Management as per ortho. DVT scd for now given concern for bleed, resume dvt prophylaxis if no obvious bleed noted.
[2017-01-23] MEDS ORDERED: ACETAMINOPHEN 650 MG/65 ML BOTTLE IV PRN ×2 (06:58→07:04)
[2017-01-23] MEDS ORDERED: HYDROmorphone 2 MG/ML SYRINGE IV PRN ×2 (06:58→07:04)
[2017-01-23] MEDS ORDERED: ONDANSETRON 4 MG/2 ML VIAL IV PRN ×2 (06:58→07:04)
[2017-01-23] MEDS ORDERED: PATIENTS OWN MEDICATION 1 DOSE MISCELL PO PRN (06:58)
[2017-01-23] MEDS ORDERED: HYDROcodone/APAP 10/325MG TABLET PO PRN (06:58)
[2017-01-23] MEDS ORDERED: ACETAMINOPHEN 325 MG TABLET PO PRN ×2 (06:58→07:04)
[2017-01-23] MEDS ORDERED: FLEETS ADULT ENEMA PR PRN ×2 (06:58→07:04)
[2017-01-23] MEDS ORDERED: ALBUTEROL SULFATE 1 PUFF INHALER INH PRN ×2 (06:58→07:04)
[2017-01-23] MEDS ORDERED: PSEUDOEPHEDRINE 30 MG TABLET PO PRN ×2 (06:58→07:04)
[2017-01-23] MEDS ORDERED: BENZOCAINE/MENTHOL 1 LOZENGE PO PRN ×2 (06:58→07:04)
[2017-01-23] MEDS ORDERED: MAGNESIUM HYDROXIDE 30 ML ORAL.SUSP PO PRN ×2 (06:58→07:04)
[2017-01-23] MEDS ORDERED: BISACODYL 10 MG SUPP.RECT PR PRN ×2 (06:58→07:04)
[2017-01-23] MEDS ORDERED: TEMAZEPAM 15 MG CAPSULE PO PRN ×2 (06:58→07:04)
[2017-01-23] MEDS ORDERED: diphenhydrAMINE 25 MG CAPSULE PO PRN (06:58)
[2017-01-23] MEDS ORDERED: MAGNESIUM CITRATE 300 ML ORAL.SOL PO ONE ×2 (06:59→07:04)
[2017-01-23] MEDS ORDERED: CHLORPHENIRAMINE MALEATE PO PRN (07:04)
[2017-01-23] MEDS ORDERED: OMEPRAZOLE 20 MG CAPSULE PO SCH (07:30)
[2017-01-23] MEDS ORDERED: METOCLOPRAMIDE 10 MG TABLET PO SCH (07:30)
[2017-01-23 08:07] LABS: Osmolality,Urine 858 mOsm/kg (80-1000)
[2017-01-23] MEDS: METOCLOPRAMIDE 10 MG TABLET PO SCH ×4 (08:39→20:13)
[2017-01-23] MEDS: HYDROcodone/APAP 10/325MG TABLET PO PRN ×2 (08:39→20:13)
[2017-01-23] MEDS: OMEPRAZOLE 20 MG CAPSULE PO SCH ×2 (08:39→18:10)
[2017-01-23] MEDS: CALCIUM (OYSTER SHELL) 500 MG TABLET PO SCH ×2 (08:39→20:13)
[2017-01-23] MEDS: POLYETHYLENE GLYCOL 3350 17 GM PACKET PO SCH (08:40)
[2017-01-23] MEDS: ARGININE PO SCH (08:40)
[2017-01-23] MEDS: MULTIVIT,THER IRON,CA,FA & MIN 1 TABLET PO SCH (08:40)
[2017-01-23] MEDS: LACTOBACILLUS 1 CAPSULE PO SCH (08:40)
[2017-01-23] MEDS: VITAMIN D3 400 UNIT TABLET PO SCH ×2 (08:41→22:21)
[2017-01-23] MEDS: cefTRIAXone 1 GM VIAL IV SCH (08:53)
[2017-01-23] MEDS ORDERED: MULTIVIT,THER IRON,CA,FA & MIN 1 TABLET PO SCH (09:00)
[2017-01-23] MEDS ORDERED: CALCIUM (OYSTER SHELL) 500 MG TABLET PO SCH (09:00)
[2017-01-23] MEDS ORDERED: POLYETHYLENE GLYCOL 3350 17 GM PACKET PO SCH (09:00)
[2017-01-23] MEDS ORDERED: LACTOBACILLUS 1 CAPSULE PO SCH (09:00)
[2017-01-23] MEDS ORDERED: cefTRIAXone 1 GM VIAL IV SCH ×2 (09:00)
[2017-01-23] MEDS ORDERED: DOCUSATE SODIUM 100 MG CAPSULE PO SCH ×2 (09:00)
[2017-01-23] MEDS ORDERED: PATIENTS OWN MEDICATION 1 DOSE MISCELL PO SCH (09:00)
[2017-01-23] MEDS ORDERED: VITAMIN D3 400 UNIT TABLET PO SCH (09:00)
--- NOTE | 2017-01-23 12:58 | Surgical Pathology Report ---
HISTOLOGY SPECIMEN MICROSCOPIC DIAGNOSIS SPECIMEN A - STOMACH, ANTRUM, BIOPSY: -- MILD CHRONIC GASTRITIS. -- ALCIAN YELLOW STAIN IS NEGATIVE FOR HELICOBACTER ORGANISMS (ADEQUATE TECHNICAL CONTROL). -- NO EVIDENCE OF INTESTINAL METAPLASIA, DYSPLASIA, OR MALIGNANCY. SPECIMEN B - ESOPHAGUS, DISTAL, BIOPSY: -- SQUAMOUS MUCOSA WITH RARE INTRAEPITHELIAL EOSINOPHILS (UP TO 1 IN A HPF), PATCHY CHRONIC INFLAMMATION, AND REACTIVE CHANGES. -- NO GLANDULAR MUCOSA IS PRESENT. (SE:hitesh) CLINICAL HISTORY Anemia; reflux. PROCEDURAL IMPRESSION Gastritis minimal; esophagitis, (?) reflux; hiatal hernia. GROSS DESCRIPTION Specimen A: Received in formalin labeled gastric antrum, is a 0.5 cm fragment of pink-paul tissue. Totally submitted - one cassette. Specimen B: Received in formalin labeled distal esophagus biopsy, are two fragments of jean-paul tissue 0.1 and 0.3 cm. Totally submitted - one cassette. ([email or web address]) Electronically Signed by: Shraddha Huggins D.O.
[2017-01-23] MEDS ORDERED: 0.9 % SODIUM CHLORIDE 10 ML SYRINGE IV SCH (14:00)
[2017-01-23] MEDS: SENNOSIDES 1 TABLET PO SCH (20:17)
[2017-01-23] MEDS ORDERED: SENNOSIDES 1 TABLET PO SCH (21:00)
--- NOTE | 2017-01-23 21:57 | Orthopedic Progress Note ---
Subjective Patient information: Note initiated : 01/23/17 at 9:54 pm Service Date, if different from initiated Date: [] Patient: Radha Frost 86 y/o F admitted on 01/19/17 for Pain Control. Chief Complaint: [less pain and took a few steps and sat in a chair] Objective Vital signs: Vital Signs Temp Pulse Pulse Resp BP BP Pulse Ox 01/23/17 20:24 98.3 F 101 H 18 145/54 97 01/23/17 16:03 98.9 F 18 161/62 94 01/23/17 11:53 99.6 F H 94 H 16 164/63 96 01/23/17 08:01 97.8 F 101 H 20 151/61 98 01/23/17 08:00 96 01/23/17 04:01 97.6 F 88 12 127/56 95 01/23/17 03:00 87 01/23/17 01:00 98.9 F 01/23/17 00:01 99.7 F H 92 H 12 120/45 96 01/23/17 00:00 92 H 12 94 01/22/17 23:00 92 H Intake and Output 01/23/17 01/23/17 01/23/17 05:59 13:59 21:59 Intake Total 300 / 300 650 / 650 380 / 380 Output Total 250 / 250 950 / 950 Balance 50 / 50 650 / 650 -570 / -570 Intake: Oral 300 / 300 650 / 650 380 / 380 Output: Urine Catheter Amount 250 / 250 950 / 950 Other: Meal Breakfast Dinner Percent of Meal Consumed 100% 100% Feeding Ability Assist with Tray Set Up Independent # Bowel Movements 1 Weight 164 lb 11.2 oz 164 lb Patient Weight 01/24/17 05:59 Weight 164 lb Intake & Output: Intake & Output 01/23/17 01/23/17 01/23/17 05:59 13:59 21:59 Intake Total 300 / 300 650 / 650 380 / 380 Output Total 250 / 250 950 / 950 Balance 50 / 50 650 / 650 -570 / -570 Weight 164 lb 11.2 oz 164 lb Intake: Oral 300 / 300 650 / 650 380 / 380 Output: Urine Catheter Amount 250 / 250 950 / 950 Other: Meal Breakfast Dinner Percent of Meal Consumed 100% 100% Feeding Ability Assist with Tray Set Up Independent # Bowel Movements 1 Incision: Yes healing Incision clean and dry: Yes Dressing: Yes clean Weight bearing status: partial Neurological exam IM: Yes abnormal gait, Yes oriented X3 Extremities exam IM: Yes Foot pink and warm (improving and will plan on dc to [facility] once they can accept), Yes neurovascular intact - Labs CBC & BMP: 01/23/17 16:33 01/23/17 04:23 Labs: Orthopedic Labs 01/18/17 01/18/17 19:33 19:33 PT 15.7 H INR 1.2 H APTT 34 01/23/17 01/23/17 01/23/17 16:33 12:15 07:50 Hgb 7.9 L 7.8 L 7.5 L Hct 23.3 L 22.8 L 22.5 L 01/23/17 01/23/17 01/23/17 04:23 04:23 01:15 Hgb Cancelled 7.8 L 7.6 L Hct Cancelled 23.2 L 22.4 L 01/23/17 01/22/17 01/22/17 00:00 20:02 15:56 Hgb Not Reportable 7.7 L 8.4 L Hct Not Reportable 22.7 L 24.7 L 01/22/17 01/22/17 01/22/17 12:05 08:20 04:00 Hgb 8.7 L 9.2 L 9.1 L Hct 25.6 L 27.2 L 27.2 L 01/22/17 01/21/17 01/21/17 01:00 21:05 16:54 Hgb 10.1 L 10.2 L 10.4 L Hct 29.5 L 29.9 L 30.3 L 01/21/17 01/21/17 01/20/17 06:40 01:00 21:45 Hgb 8.4 L Not Reportable 8.9 L Hct 24.8 L Not Reportable 26.4 L 01/20/17 01/20/17 01/20/17 19:32 15:00 10:00 Hgb 9.7 L 10.2 L 10.9 L Hct 27.9 L 30.0 L 31.8 L 01/20/17 01/19/17 01/19/17 04:00 21:30 01:25 Hgb 12.4 TNP 12.3 Hct 36.6 TNP 36.0
[2017-01-23] MEDS: diphenhydrAMINE 25 MG CAPSULE PO PRN (22:01)
--- NOTE | 2017-01-23 22:04 | Discharge Summary ---
Ortho Discharge - FELIC[facility] - Patient Instructions Diet: Regular Diet Activity: partial weight bearing, other (touch toe) Total Hip Protocol: Follow activity instructions as provided by Physical Therapy. femur fx Dressing Care: Aquacel Ag - leave on for 5 days - Follow Up Plan Disposition: Xfer SNF Prognosis: Fair Rehab Potential: Fair I certify that the patient requires SNF services: No Overall status at discharge: patient is not back to baseline (low hct) - Orders For Discharge Prescriptions: HYDROcodone/ACETAMINOPHEN [Hydrocodon-Acetaminophen 5-325] 1 - 2 each PO Q6HP PRN #60 tab PRN Reason: Pain Additional Discharge Orders: Physical Therapy at Discharge - TKA Location: Determined By Patient Toilet Riser Discharge Order Location: Determined By Patient Walker Location: Determined By Patient
[2017-01-24] MEDS: HYDROcodone/APAP 10/325MG TABLET PO PRN (00:26)
[2017-01-24] MEDS: 0.9 % SODIUM CHLORIDE 10 ML SYRINGE IV SCH ×3 (06:02→23:12)
[2017-01-24 07:07] LABS: ALT/SGPT 63 U/l (0-40); Alkaline Phosphatase 61 U/L (39-117); Bilirubin,Direct < 0.2 mg/dL (0.0-0.3); Blood Urea Nitrogen 16 mg/dl (8-23); Gamma Glutamyl Transpeptidase 23 U/L (5-36)
[2017-01-24] MEDS: METOCLOPRAMIDE 10 MG TABLET PO SCH ×4 (08:09→20:13)
[2017-01-24] MEDS: OMEPRAZOLE 20 MG CAPSULE PO SCH ×2 (08:09→17:37)
[2017-01-24] MEDS ORDERED: FUROSEMIDE 40 MG/4 ML VIAL IV ONE (08:27)
[2017-01-24 08:49] LABS: Basophils # (Auto) 0 K/mcL (0.0-0.3); Basophils % (Auto) 0.4 % (0.0-2.0); Eosinophils # (Auto) 0.1 K/mcL (0.0-0.7); Granulocytes % (Auto) 69.1 % (38.0-78.0); Lymphocytes # (Auto) 0.9 K/mcL (1.5-4.8); Lymphocytes % (Auto) 13.4 % (15.5-49.0); Mean Cell Volume 94.6 fL (80.0-100.0); Mean Corpuscular HGB Conc 33.6 g/dL (31.0-36.0); Mean Corpuscular Hemoglobin 31.7 pg (26.0-34.0); Monocytes # (Auto) 1.1 K/mcL (0.1-0.9); Monocytes % (Auto) 16.1 % (1.0-12.0); Platelet Count 150 K/mcL (140-440); RBC 2.18 M/mcL (4.00-5.20)
--- NOTE | 2017-01-24 09:53 | XRay Report ---
CLINICAL INFORMATION: Repeat recent revision pain COMPARISON: None. FINDINGS: Left total hip prostheses] ReVision erosion of the [place] acetabulum again noted. The prosthetic acetabulum is eroded through the [place] bony wall which is fractured. The jean protrusion appears accentuated on this weightbearing view. 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
--- NOTE | 2017-01-24 09:56 | XRay Report ---
CLINICAL INFORMATION: Femur fracture COMPARISON: 01/19/2017 FINDINGS: Left total hip revision with extension through the eroded fractured medial [place] acetabulum - as previously described. Comminuted fracture of the distal femoral diaphysis is been transfixed by an additional plate and screws. Alignment is near-anatomic. Left total knee prostheses remains anatomically aligned. IMPRESSION: Fracture of the distal femur remains in anatomic alignment and transfixed by plate and screws. Interpreted and Authenticated by: Matias Wasserman 01/24/17
[2017-01-24] MEDS: LACTOBACILLUS 1 CAPSULE PO SCH (10:12)
[2017-01-24] MEDS: oxyCODONE HCL 5 MG TABLET PO PRN ×2 (10:12→23:08)
[2017-01-24] MEDS: MULTIVIT,THER IRON,CA,FA & MIN 1 TABLET PO SCH (10:13)
[2017-01-24] MEDS: CALCIUM (OYSTER SHELL) 500 MG TABLET PO SCH ×2 (10:13→20:13)
[2017-01-24] MEDS: POLYETHYLENE GLYCOL 3350 17 GM PACKET PO SCH (10:24)
[2017-01-24] MEDS: cefTRIAXone 1 GM VIAL IV SCH (10:48)
[2017-01-24] MEDS: ARGININE PO SCH (10:49)
[2017-01-24] MEDS: VITAMIN D3 400 UNIT TABLET PO SCH ×2 (12:13→20:14)
--- NOTE | 2017-01-24 17:23 | Internal Med Progress Note ---
Medical - PN: Subj Patient information: Note initiated : 01/24/17 at 5:19 pm Service Date, if different from initiated Date: [] Patient: Radha Frost 86 y/o F admitted on 01/19/17 for Pain Control. Chief Complaint: [] Interval history: Pt seen examined, no acute overnight issues notes of pain in the lft hip hb improved and has remained stable did receive some IVF today which helped she had received 2 units of blood before coming to [facility] which I am not sure why. monitor hb for now, if remains stable, likely related to surgery and hip fracture. if hb continues to drop will need to consider alternative etiology for blood loss. Jan 21: patient seen examined, overnight the patients hb continued to drop, it had dropped to 8.2 today, she is tachcyardic adn feels a bit dizzy. She has not yet had a bm CT abdomen does not reveal any retroperitoneal bleed, she has a normal BUN CT hip shows some hemorrage, but not a lot as per radiology Will plan to get GI eval to see if any ongoing GI loss? transfuse 2 more units of prbc d/c asa start on SCD for DVT prophylaxis. IV PPI for now Fleets enema to help with BM continue to monitor closely try to get PICC line if no good IV access. Jan 22 Patient seen examined, no acute overnight issues, removed IV, which was placed in Right EJ again, no other concerns or complaints her Hb dropped by 1 grm overnight, hemodynamically stable EGD is negative, reviewed the case with Dr barry, we think its the left leg where she is bleeding into, not much to be done except to transfuse he is ok with holding ASA bid for now for DVT given ongoing bleed at the surgical site. BP is stable Jan 15 patient seen examined no acute overnight issues, bp stable, hb has remained stable since yesterday pm NA dropped to 128, workup sent ua suggestive of UTI, started on rocephin for now cultures pending given stability of bp, and hb, and no source of bleed besides the left thigh, will xfer to med surg status. PT was positive 5L now, somewhat fluid overloaded, give one dose of lasix and see how she does. Jan 24 Hgb 6.9 this AM. D/W Dr. Barry. No further intervention other transfusion. Will give 1 uprbc. Does not have increased pain; has doppler + pulse in L DP and PT. Sodium studies c/w SIADH. Improved a bit after Lasix. Still net positive. Will give Lasix 40 IV today. Bowels starting to move--first time since admission; these were not grossly bloody, but were heme +. R hip pain worse today but this is the most movement she has done. LFTs mildly elevated today; Tylenol and [place] DC'd. Started on oxycodone. ROS: no chest presure or SOB - Constitutional Vitals: Vital Signs Temp Pulse Resp BP Pulse Ox 99.0 F H 93 H 18 146/66 98 01/24/17 12:00 01/24/17 16:00 01/24/17 12:00 01/24/17 12:00 01/24/17 12:00 Period Temp Pulse Resp BP Sys/[place] Pulse Ox Last 24 Hr 97.9 F-99.0 F 85-101 14-18 117-150/54-74 93-98 Intake and Output 01/24/17 01/24/17 01/24/17 05:59 13:59 21:59 Intake Total 150 / 150 340 / 340 325 / 325 Output Total 400 / 400 125 / 125 1800 / 1800 Balance -250 / -250 215 / 215 -1475 / -1475 Intake & Output: Intake & Output 01/24/17 01/24/17 01/24/17 05:59 13:59 21:59 Intake Total 150 / 150 340 / 340 325 / 325 Output Total 400 / 400 125 / 125 1800 / 1800 Balance -250 / -250 215 / 215 -1475 / -1475 Intake: Oral 150 / 150 340 / 340 Blood Product 325 / 325 Output: Urine Catheter Amount 400 / 400 1800 / 1800 Stool 125 / 125 Other: Meal Breakfast Lunch Percent of Meal Consumed 25% 100% Feeding Ability Independent # Bowel Movements 1 1 Exam: Constitutional; Afebrile, cooperative, alert, not in distress. HEENT: NCAT, PERRL, EOMI Neck- Midline trachea, supple Respiratory: CTAB. No crackles or wheezing, no rhonchi. CV- Rate rhythm regular, S1,S2 heard, no gallop, no rub. Abdomen- Soft nontender abdomen, no organomegaly, no tenderness, no guarding or rigidity, NRO- AOx3, moving all extremities, no gross focal deficit noted. Ext: L thigh with nonpitting edema. L foot is cooler than R. DP and PT pulses on L not palpable, but able to be heard with Doppler. Medical - PN: Obj Da - Labs CBC & Chem 7: 01/24/17 04:50 01/24/17 04:50 Labs: Abnormal Lab Results 01/24/17 01/24/17 01/23/17 04:50 04:50 16:33 WBC RBC 2.18 L Hgb 6.9 L* 7.9 L Hct 20.6 L* 23.3 L RDW 16.0 H Plt Count Gran % Lymph % (Auto) 13.4 L [place] % (Auto) 16.1 H Gran # Lymph # (Auto) 0.9 L [place] # (Auto) 1.1 H Sodium 129 L Chloride 93 L Creatinine 0.3 L Osmolality Calcium 7.7 L Phosphorus 2.0 L AST 92 H ALT 63 H Lactate Dehydrogenase 265 H Total Creatine Kinase Total Protein 4.1 L Albumin 2.0 L Globulin 2.1 L Albumin/Globulin Ratio Urine Protein Ur Leukocyte Esterase Urine RBC Urine WBC Hyaline Casts 01/23/17 01/23/17 01/23/17 12:15 07:50 05:30 WBC RBC Hgb 7.8 L 7.5 L Hct 22.8 L 22.5 L RDW Plt Count Gran % Lymph % (Auto) [place] % (Auto) Gran # Lymph # (Auto) [place] # (Auto) Sodium Chloride Creatinine Osmolality 274 L Calcium Phosphorus AST ALT Lactate Dehydrogenase Total Creatine Kinase Total Protein Albumin Globulin Albumin/Globulin Ratio Urine Protein Ur Leukocyte Esterase Urine RBC Urine WBC Hyaline Casts 01/23/17 01/23/17 01/23/17 05:30 04:23 04:23 WBC RBC 2.44 L Hgb 7.8 L Hct 23.2 L RDW 16.8 H Plt Count 131 L Gran % 82.6 H Lymph % (Auto) 6.9 L [place] % (Auto) Gran # 8.8 H Lymph # (Auto) 0.7 L [place] # (Auto) 1.1 H Sodium 128 L Chloride Creatinine 0.5 L Osmolality Calcium 8.0 L Phosphorus 1.8 L AST 40 H ALT Lactate Dehydrogenase Total Creatine Kinase 364 H Total Protein 4.4 L Albumin 1.9 L Globulin Albumin/Globulin Ratio 0.8 L Urine Protein Ur Leukocyte Esterase Urine RBC Urine WBC Hyaline Casts 01/23/17 01/22/17 01/22/17 01:15 22:40 20:02 WBC RBC Hgb 7.6 L 7.7 L Hct 22.4 L 22.7 L RDW Plt Count Gran % Lymph % (Auto) [place] % (Auto) Gran # Lymph # (Auto) [place] # (Auto) Sodium Chloride Creatinine Osmolality Calcium Phosphorus AST ALT Lactate Dehydrogenase Total Creatine Kinase Total Protein Albumin Globulin Albumin/Globulin Ratio Urine Protein 30 A Ur Leukocyte Esterase 25 A Urine RBC 4 H Urine WBC 7 H Hyaline Casts 7 H 01/22/17 01/22/17 01/22/17 15:56 12:05 08:20 WBC RBC Hgb 8.4 L 8.7 L 9.2 L Hct 24.7 L 25.6 L 27.2 L RDW Plt Count Gran % Lymph % (Auto) [place] % (Auto) Gran # Lymph # (Auto) [place] # (Auto) Sodium Chloride Creatinine Osmolality Calcium Phosphorus AST ALT Lactate Dehydrogenase Total Creatine Kinase Total Protein Albumin Globulin Albumin/Globulin Ratio Urine Protein Ur Leukocyte Esterase Urine RBC Urine WBC Hyaline Casts 01/22/17 01/22/17 01/22/17 04:00 01:00 01:00 WBC 15.6 H RBC 3.18 L Hgb 9.1 L 10.1 L Hct 27.2 L 29.5 L RDW 17.2 H Plt Count Gran % 85.0 H Lymph % (Auto) 7.1 L [place] % (Auto) Gran # 13.3 H Lymph # (Auto) 1.1 L [place] # (Auto) 1.2 H Sodium 132 L Chloride Creatinine 0.4 L Osmolality Calcium 7.9 L Phosphorus 2.1 L AST ALT Lactate Dehydrogenase Total Creatine Kinase Total Protein 4.4 L Albumin 2.2 L Globulin Albumin/Globulin Ratio Urine Protein Ur Leukocyte Esterase Urine RBC Urine WBC Hyaline Casts 01/21/17 01/21/17 21:05 16:54 WBC RBC Hgb 10.2 L 10.4 L Hct 29.9 L 30.3 L RDW Plt Count Gran % Lymph % (Auto) [place] % (Auto) Gran # Lymph # (Auto) [place] # (Auto) Sodium Chloride Creatinine Osmolality Calcium Phosphorus AST ALT Lactate Dehydrogenase Total Creatine Kinase Total Protein Albumin Globulin Albumin/Globulin Ratio Urine Protein Ur Leukocyte Esterase Urine RBC Urine WBC Hyaline Casts Meds: Medications Albuterol Sulfate (Ventolin) 1 puff INH Q4HP PRN PRN Reason: Bronchodilation Bisacodyl (Dulcolax) 10 mg WI Q2-3DAYS PRN PRN Reason: Constipation Calcium Carbonate/Glycine (Oscal) 500 mg PO BID [facility] Last Admin: 01/24/17 10:13 Dose: 500 mg Ceftriaxone Sodium (Rocephin) 1 gm IV Q24H [facility] Last Admin: 01/24/17 10:48 Dose: 1 gm Diphenhydramine HCl (Benadryl) 25 mg PO HSP PRN PRN Reason: Sleep Last Admin: 01/23/17 22:01 Dose: 25 mg Hydromorphone HCl (Dilaudid) 0 mg IV Q2HP PRN PRN Reason: PAIN LEVEL > 6 Acetaminophen (Ofirmev) 650 mg in 65 mls @ 130 mls/hr IV Q6HP PRN PRN Reason: Pain/Fever > 101/chills Sodium Chloride (Sodium Chloride 0.9%) 1,000 mls @ 20 mls/hr IV .Q24H [facility] Iron Carb/Multivit/[place]/Folic Acid (Multivitamin W/Minerals) 1 tab PO DAILY [facility] Last Admin: 01/24/17 10:13 Dose: 1 tab Lactobacillus Rhamnosus (Culturelle) 1 cap PO DAILY [facility] Last Admin: 01/24/17 10:12 Dose: 1 cap Magnesium Hydroxide (Milk Of Magnesia) 30 ml PO BIDP PRN PRN Reason: Constipation Metoclopramide HCl (Reglan) 2.5 mg PO ACHS [facility] Last Admin: 01/24/17 12:12 Dose: 2.5 mg Omeprazole (Prilosec) 20 mg PO BIDAC [facility] Last Admin: 01/24/17 08:09 Dose: 20 mg Ondansetron HCl (Zofran) 4 mg IV Q4HP PRN PRN Reason: Nausea And Vomiting Oxycodone HCl (Roxicodone) 0 mg PO Q4-6HP PRN PRN Reason: Pain Last Admin: 01/24/17 10:12 Dose: 5 mg Chlorpheniramine Maleate [Chlor- Trimeton] Tablet 1 dose PO Q4HP PRN PRN Reason: Allergy Symptoms Arginine [L-Arginine (] 1 Tablet) 1 dose PO DAILY [facility] Last Admin: 01/24/17 10:49 Dose: Not Given Polyethylene Glycol (Miralax) 17 gm PO DAILY [facility] Last Admin: 01/24/17 10:24 Dose: Not Given Pseudoephedrine HCl (Sudafed) 30 mg PO Q12HP PRN PRN Reason: Allergy Symptoms Senna (Senokot) 2 tab PO HS [facility] Last Admin: 01/23/17 20:17 Dose: Not Given Sodium Biphosphate/Sodium Phosphate (Fleets Adult) 1 dose WI Q3-4DAYS PRN PRN Reason: Constipation Sodium Chloride (Saline Flush) 10 ml IV Q8 [facility] Last Admin: 01/24/17 14:50 Dose: 10 ml Temazepam (Restoril) 15 mg PO HSP PRN PRN Reason: Insomnia Throat Lozenges (Cepacol) 1 lozenge PO PRN PRN PRN Reason: Sore Throat Vitamin D (Vitamin D3) 400 unit PO BID [facility] Last Admin: 01/24/17 12:13 Dose: Not Given Medical - PN: A/P - Time Spent With Patient Total time spent is greater than 50% in coordination of care (as documented) at patient's floor/unit and/or counseling patient: Greater than 35 minutes - Narrative A/P Narrative: A/P Acute blood loss anemia: due to intraop / fracture related blood loss, hb trending down again. D/W Dr. Barry--not unusual to see this much bleeding for several days postop with multiple fractures. Continue transfuse PRN. Monitor for compartment syndrome. Doppler pulse q shift. 1g tranxemic acid given 01/23 off asa 325 bid (was being used for dvt prophylaxis). monitor serial h/h, bp is stable. Hyponatremia: Urine Na c/w SIADH (prior to diuretics). Diurese again today. Na improving. Cont to trend constipation, daily miralax, milk of magnesia. Now stooling. UTI--on CTX since 01/23. f/u cx GERD w mild gastritis. cont oral prilosec x 1-2 months and try to taper off as OP. No e/o GI bleed noted on EGD on 01/[address] Duron. H. pylori neg. Very low suspicion of lower GI BLEED Right femur fracture/ s/p failed gamma nail: Management as per ortho. DVT scd for now given concern for bleed, resume dvt prophylaxis if no obvious bleed noted. Dispo: To swing bed in [place] when H/H stabilizes. ADOD 2-3 days.
--- NOTE | 2017-01-24 18:24 | Orthopedic Progress Note ---
Subjective Patient information: Note initiated : 01/24/17 at 6:22 pm Service Date, if different from initiated Date: [] Patient: Radha Frost 86 y/o F admitted on 01/19/17 for Pain Control. Chief Complaint: [left hip pain still present but max assist] Objective Vital signs: Vital Signs Temp Pulse Resp BP Pulse Ox 01/24/17 16:00 98.5 F 93 H 16 166/74 95 01/24/17 12:00 99.0 F H 18 146/66 98 01/24/17 06:36 98.6 F 16 150/74 98 01/24/17 04:00 97.9 F 85 16 117/62 93 01/23/17 23:35 98.2 F 97 H 14 142/59 94 01/23/17 20:24 98.3 F 101 H 18 145/54 97 Intake and Output 01/24/17 01/24/17 01/24/17 05:59 13:59 21:59 Intake Total 150 / 150 340 / 340 965 / 965 Output Total 400 / 400 125 / 125 1800 / 1800 Balance -250 / -250 215 / 215 -835 / -835 Intake: Oral 150 / 150 340 / 340 640 / 640 Blood Product 325 / 325 Output: Urine Catheter Amount 400 / 400 1800 / 1800 Stool 125 / 125 Other: Meal Breakfast Nourishment/Supplement Percent of Meal Consumed 25% 100% Feeding Ability Independent Independent # Bowel Movements 1 1 Intake & Output: Intake & Output 01/24/17 01/24/17 01/24/17 05:59 13:59 21:59 Intake Total 150 / 150 340 / 340 965 / 965 Output Total 400 / 400 125 / 125 1800 / 1800 Balance -250 / -250 215 / 215 -835 / -835 Intake: Oral 150 / 150 340 / 340 640 / 640 Blood Product 325 / 325 Output: Urine Catheter Amount 400 / 400 1800 / 1800 Stool 125 / 125 Other: Meal Breakfast Nourishment/Supplement Percent of Meal Consumed 25% 100% Feeding Ability Independent Independent # Bowel Movements 1 1 Incision: Yes healing Incision clean and dry: Yes Dressing: Yes clean Weight bearing status: non Neurological exam IM: Yes oriented X3, Yes neurovascular intact Extremities exam IM: Yes Foot pink and warm (low hct and continued loss of fixation of acetabular fx), Yes neurovascular intact - Labs CBC & BMP: 01/24/17 04:50 01/24/17 04:50 Labs: Orthopedic Labs 01/18/17 01/18/17 19:33 19:33 PT 15.7 H INR 1.2 H APTT 34 01/24/17 01/23/17 01/23/17 04:50 16:33 12:15 Hgb 6.9 L* 7.9 L 7.8 L Hct 20.6 L* 23.3 L 22.8 L 01/23/17 01/23/17 01/23/17 07:50 04:23 04:23 Hgb 7.5 L Cancelled 7.8 L Hct 22.5 L Cancelled 23.2 L 01/23/17 01/23/17 01/22/17 01:15 00:00 20:02 Hgb 7.6 L Not Reportable 7.7 L Hct 22.4 L Not Reportable 22.7 L 01/22/17 01/22/17 01/22/17 15:56 12:05 08:20 Hgb 8.4 L 8.7 L 9.2 L Hct 24.7 L 25.6 L 27.2 L 01/22/17 01/22/17 01/21/17 04:00 01:00 21:05 Hgb 9.1 L 10.1 L 10.2 L Hct 27.2 L 29.5 L 29.9 L 01/21/17 01/21/17 01/21/17 16:54 06:40 01:00 Hgb 10.4 L 8.4 L Not Reportable Hct 30.3 L 24.8 L Not Reportable 01/20/17 01/20/17 01/20/17 21:45 19:32 15:00 Hgb 8.9 L 9.7 L 10.2 L Hct 26.4 L 27.9 L 30.0 L 01/20/17 01/20/17 01/19/17 10:00 04:00 21:30 Hgb 10.9 L 12.4 TNP Hct 31.8 L 36.6 TNP 01/19/17 01:25 Hgb 12.3 Hct 36.0
[2017-01-24] MEDS: SENNOSIDES 1 TABLET PO SCH (20:14)
[2017-01-24] MEDS: diphenhydrAMINE 25 MG CAPSULE PO PRN (20:31)
[2017-01-24] MEDS: 0.9 % SODIUM CHLORIDE 1,000 ML IV SCH (22:24)
[2017-01-25 05:32] LABS: Basophils # (Auto) 0 K/mcL (0.0-0.3); Basophils % (Auto) 0.2 % (0.0-2.0); Eosinophils # (Auto) 0 K/mcL (0.0-0.7); Eosinophils % (Auto) 0.6 % (0.0-7.0); Granulocytes % (Auto) 70.3 % (38.0-78.0); Lymphocytes # (Auto) 1.2 K/mcL (1.5-4.8); Lymphocytes % (Auto) 15.3 % (15.5-49.0); Mean Cell Volume 92.9 fL (80.0-100.0); Mean Corpuscular HGB Conc 33.4 g/dL (31.0-36.0); Monocytes # (Auto) 1.1 K/mcL (0.1-0.9); Monocytes % (Auto) 13.6 % (1.0-12.0); Platelet Count 173 K/mcL (140-440); RBC 2.89 M/mcL (4.00-5.20); Red Cell Distribution Width 16.4 % (11.5-14.5)
[2017-01-25 05:59] LABS: ALT/SGPT 66 U/l (0-40); Albumin 2.1 gm/dL (3.2-5.2); Albumin/Globulin Ratio 0.9 (1.0-2.3); Alkaline Phosphatase 61 U/L (39-117); Bilirubin,Direct < 0.2 mg/dL (0.0-0.3); Blood Urea Nitrogen 12 mg/dl (8-23); Gamma Glutamyl Transpeptidase 28 U/L (5-36); Magnesium 1.7 mg/dL (1.6-2.5); Uric Acid 3.4 mg/dL (2.5-8.0)
[2017-01-25] MEDS: oxyCODONE HCL 5 MG TABLET PO PRN ×3 (06:06→23:37)
[2017-01-25] MEDS: 0.9 % SODIUM CHLORIDE 10 ML SYRINGE IV SCH ×3 (06:07→21:14)
[2017-01-25] MEDS: METOCLOPRAMIDE 10 MG TABLET PO SCH ×4 (07:38→21:14)
[2017-01-25] MEDS: OMEPRAZOLE 20 MG CAPSULE PO SCH ×2 (07:38→17:17)
[2017-01-25] MEDS: LACTOBACILLUS 1 CAPSULE PO SCH (08:12)
[2017-01-25] MEDS: 0.9 % SODIUM CHLORIDE 1,000 ML IV SCH (08:13)
[2017-01-25] MEDS: MULTIVIT,THER IRON,CA,FA & MIN 1 TABLET PO SCH (08:13)
[2017-01-25] MEDS: CALCIUM (OYSTER SHELL) 500 MG TABLET PO SCH ×2 (08:13→21:13)
[2017-01-25] MEDS: POLYETHYLENE GLYCOL 3350 17 GM PACKET PO SCH (08:14)
[2017-01-25] MEDS: ARGININE PO SCH (08:14)
[2017-01-25] MEDS: cefTRIAXone 1 GM VIAL IV SCH (08:22)
[2017-01-25] MEDS: VITAMIN D3 400 UNIT TABLET PO SCH ×2 (08:22→21:14)
[2017-01-25] MEDS: POTASSIUM CHLORIDE 20 MEQ TABLET PO SCH (09:30)
[2017-01-25] MEDS: FUROSEMIDE 40 MG/4 ML VIAL IV SCH (09:30)
--- NOTE | 2017-01-25 11:06 | Orthopedic Progress Note ---
Subjective Patient information: Note initiated : 01/25/17 at 11:04 am Service Date, if different from initiated Date: [] Patient: Radha Frost 86 y/o F admitted on 01/19/17 for Pain Control. Chief Complaint: [feels better but still with pain and swelling in left leg] Objective Vital signs: Vital Signs Temp Pulse Pulse Pulse Pulse Pulse Resp 01/25/17 07:02 99.1 F H 95 H 16 01/25/17 06:49 95 H 95 H 95 H 95 H 01/25/17 04:00 98.4 F 98 H 16 01/24/17 23:16 98.8 F 94 H 16 01/24/17 20:00 99.1 F H 107 H 16 01/24/17 16:00 98.5 F 93 H 16 01/24/17 12:00 99.0 F H 18 BP Pulse Ox 01/25/17 07:02 134/77 90 01/25/17 06:49 01/25/17 04:00 186/80 92 01/24/17 23:16 167/78 98 01/24/17 20:00 148/65 97 01/24/17 16:00 166/74 95 01/24/17 12:00 146/66 98 Intake and Output 01/24/17 01/25/17 01/25/17 21:59 05:59 13:59 Intake Total 965 / 965 400 / 400 480 / 480 Output Total 1800 / 1800 950 / 950 550 / 550 Balance -835 / -835 -550 / -550 -70 / -70 Intake: Oral 640 / 640 400 / 400 480 / 480 Blood Product 325 / 325 Output: Urine Catheter Amount 1800 / 1800 950 / 950 550 / 550 Other: Meal Nourishment/Supplement Breakfast Percent of Meal Consumed 100% 100% Feeding Ability Independent Independent Weight 166 lb Intake & Output: Intake & Output 01/24/17 01/25/17 01/25/17 21:59 05:59 13:59 Intake Total 965 / 965 400 / 400 480 / 480 Output Total 1800 / 1800 950 / 950 550 / 550 Balance -835 / -835 -550 / -550 -70 / -70 Weight 166 lb Intake: Oral 640 / 640 400 / 400 480 / 480 Blood Product 325 / 325 Output: Urine Catheter Amount 1800 / 1800 950 / 950 550 / 550 Other: Meal Nourishment/Supplement Breakfast Percent of Meal Consumed 100% 100% Feeding Ability Independent Independent Incision: Yes healing Incision clean and dry: Yes Dressing: Yes clean Weight bearing status: non Neurological exam IM: Yes oriented X3, Yes neurovascular intact Extremities exam IM: Yes Foot pink and warm (still with painb), Yes neurovascular intact - Labs CBC & BMP: 01/25/17 04:15 01/25/17 04:15 Labs: Orthopedic Labs 01/18/17 01/18/17 19:33 19:33 PT 15.7 H INR 1.2 H APTT 34 01/25/17 01/24/17 01/23/17 04:15 04:50 16:33 Hgb 9.0 L 6.9 L* 7.9 L Hct 26.9 L 20.6 L* 23.3 L 01/23/17 01/23/17 01/23/17 12:15 07:50 04:23 Hgb 7.8 L 7.5 L Cancelled Hct 22.8 L 22.5 L Cancelled 01/23/17 01/23/17 01/23/17 04:23 01:15 00:00 Hgb 7.8 L 7.6 L Not Reportable Hct 23.2 L 22.4 L Not Reportable 01/22/17 01/22/17 01/22/17 20:02 15:56 12:05 Hgb 7.7 L 8.4 L 8.7 L Hct 22.7 L 24.7 L 25.6 L 01/22/17 01/22/17 01/22/17 08:20 04:00 01:00 Hgb 9.2 L 9.1 L 10.1 L Hct 27.2 L 27.2 L 29.5 L 01/21/17 01/21/17 01/21/17 21:05 16:54 06:40 Hgb 10.2 L 10.4 L 8.4 L Hct 29.9 L 30.3 L 24.8 L 01/21/17 01/20/17 01/20/17 01:00 21:45 19:32 Hgb Not Reportable 8.9 L 9.7 L Hct Not Reportable 26.4 L 27.9 L 01/20/17 01/20/17 01/20/17 15:00 10:00 04:00 Hgb 10.2 L 10.9 L 12.4 Hct 30.0 L 31.8 L 36.6 01/19/17 01/19/17 21:30 01:25 Hgb TNP 12.3 Hct TNP 36.0
--- NOTE | 2017-01-25 11:45 | Internal Med Progress Note ---
Medical - PN: Subj Patient information: Note initiated : 01/25/17 at 11:42 am Service Date, if different from initiated Date: [] Patient: Radha Frost 86 y/o F admitted on 01/19/17 for Pain Control. Chief Complaint: [] Interval history: Pt seen examined, no acute overnight issues notes of pain in the lft hip hb improved and has remained stable did receive some IVF today which helped she had received 2 units of blood before coming to [facility] which I am not sure why. monitor hb for now, if remains stable, likely related to surgery and hip fracture. if hb continues to drop will need to consider alternative etiology for blood loss. Jan 21: patient seen examined, overnight the patients hb continued to drop, it had dropped to 8.2 today, she is tachcyardic adn feels a bit dizzy. She has not yet had a bm CT abdomen does not reveal any retroperitoneal bleed, she has a normal BUN CT hip shows some hemorrage, but not a lot as per radiology Will plan to get GI eval to see if any ongoing GI loss? transfuse 2 more units of prbc d/c asa start on SCD for DVT prophylaxis. IV PPI for now Fleets enema to help with BM continue to monitor closely try to get PICC line if no good IV access. Jan 22 Patient seen examined, no acute overnight issues, removed IV, which was placed in Right EJ again, no other concerns or complaints her Hb dropped by 1 grm overnight, hemodynamically stable EGD is negative, reviewed the case with Dr barry, we think its the left leg where she is bleeding into, not much to be done except to transfuse he is ok with holding ASA bid for now for DVT given ongoing bleed at the surgical site. BP is stable Jan 15 patient seen examined no acute overnight issues, bp stable, hb has remained stable since yesterday pm NA dropped to 128, workup sent ua suggestive of UTI, started on rocephin for now cultures pending given stability of bp, and hb, and no source of bleed besides the left thigh, will xfer to med surg status. PT was positive 5L now, somewhat fluid overloaded, give one dose of lasix and see how she does. Jan 24 Hgb 6.9 this AM. D/W Dr. Barry. No further intervention other transfusion. Will give 1 uprbc. Does not have increased pain; has doppler + pulse in L DP and PT. Sodium studies c/w SIADH. Improved a bit after Lasix. Still net positive. Will give Lasix 40 IV today. Bowels starting to move--first time since admission; these were not grossly bloody, but were heme +. R hip pain worse today but this is the most movement she has done. LFTs mildly elevated today; Tylenol and [place] DC'd. Started on oxycodone. Jan [address] to 9.0 today p only 1 uprbc. Her LLE swelling is much improved and her DP and PT pulses are now palpable. Her Na is worse 129-->125. She is still 20# up from admission. Diurese again today with Lasix 40 IV. LFTs trending down. D/W Dr. Barry today. She is still having significant pain with any movement. He will discuss with ortho in [place] to see if transfer is needed for revision. ROS: no chest pressure or SOB - Constitutional Vitals: Vital Signs Temp Pulse Resp BP Pulse Ox 99.1 F H 95 H 16 134/77 90 01/25/17 07:02 01/25/17 07:02 01/25/17 07:02 01/25/17 07:02 01/25/17 07:02 Period Temp Pulse Resp BP Sys/Sandoval Pulse Ox Last 24 Hr 98.4 F-99.1 F 93-107 16-18 134-186/65-80 90-98 Intake and Output 01/24/17 01/25/17 01/25/17 21:59 05:59 13:59 Intake Total 965 / 965 400 / 400 480 / 480 Output Total 1800 / 1800 950 / 950 1550 / 1550 Balance -835 / -835 -550 / -550 -1070 / -1070 Weight 166 lb Intake & Output: Intake & Output 01/24/17 01/25/17 01/25/17 21:59 05:59 13:59 Intake Total 965 / 965 400 / 400 480 / 480 Output Total 1800 / 1800 950 / 950 1550 / 1550 Balance -835 / -835 -550 / -550 -1070 / -1070 Weight 166 lb Intake: Oral 640 / 640 400 / 400 480 / 480 Blood Product 325 / 325 Output: Urine Catheter Amount 1800 / 1800 950 / 950 1550 / 1550 Other: Meal Nourishment/Supplement Breakfast Percent of Meal Consumed 100% 100% Feeding Ability Independent Independent Exam: Constitutional; Afebrile, cooperative, alert, not in distress. Pale HEENT: NCAT, PERRL, EOMI Neck- Midline trachea, supple Respiratory: CTAB. No crackles or wheezing, no rhonchi. CV- Rate rhythm regular, S1,S2 heard, no gallop, no rub. Abdomen- Soft nontender abdomen, no organomegaly, no tenderness, no guarding or rigidity, NRO- AOx3, moving all extremities, no gross focal deficit noted. Ext: L thigh with nonpitting edema. L foot with just trace edema now. L foot is cooler than R. DP and PT pulses palpable. Medical - PN: Obj Da - Labs CBC & Chem 7: 01/25/17 04:15 01/25/17 04:15 Labs: Abnormal Lab Results 01/25/17 01/25/17 01/24/17 04:15 04:15 04:50 RBC 2.89 L Hgb 9.0 L Hct 26.9 L RDW 16.4 H Plt Count Gran % Lymph % (Auto) 15.3 L Davidson % (Auto) 13.6 H Gran # Lymph # (Auto) 1.2 L Davidson # (Auto) 1.1 H Sodium 125 L 129 L Chloride 87 L 93 L Creatinine 0.3 L 0.3 L Osmolality Calcium 7.5 L 7.7 L Phosphorus 1.9 L 2.0 L AST 88 H 92 H ALT 66 H 63 H Lactate Dehydrogenase 305 H 265 H Total Creatine Kinase Total Protein 4.5 L 4.1 L Albumin 2.1 L 2.0 L Globulin 2.1 L Albumin/Globulin Ratio 0.9 L Urine Protein Ur Leukocyte Esterase Urine RBC Urine WBC Hyaline Casts 01/24/17 01/23/17 01/23/17 04:50 16:33 12:15 RBC 2.18 L Hgb 6.9 L* 7.9 L 7.8 L Hct 20.6 L* 23.3 L 22.8 L RDW 16.0 H Plt Count Gran % Lymph % (Auto) 13.4 L Davidson % (Auto) 16.1 H Gran # Lymph # (Auto) 0.9 L Davidson # (Auto) 1.1 H Sodium Chloride Creatinine Osmolality Calcium Phosphorus AST ALT Lactate Dehydrogenase Total Creatine Kinase Total Protein Albumin Globulin Albumin/Globulin Ratio Urine Protein Ur Leukocyte Esterase Urine RBC Urine WBC Hyaline Casts 01/23/17 01/23/17 01/23/17 07:50 05:30 05:30 RBC Hgb 7.5 L Hct 22.5 L RDW Plt Count Gran % Lymph % (Auto) Davidson % (Auto) Gran # Lymph # (Auto) Davidson # (Auto) Sodium Chloride Creatinine Osmolality 274 L Calcium Phosphorus AST ALT Lactate Dehydrogenase Total Creatine Kinase 364 H Total Protein Albumin Globulin Albumin/Globulin Ratio Urine Protein Ur Leukocyte Esterase Urine RBC Urine WBC Hyaline Casts 01/23/17 01/23/17 01/23/17 04:23 04:23 01:15 RBC 2.44 L Hgb 7.8 L 7.6 L Hct 23.2 L 22.4 L RDW 16.8 H Plt Count 131 L Gran % 82.6 H Lymph % (Auto) 6.9 L Davidson % (Auto) Gran # 8.8 H Lymph # (Auto) 0.7 L Davidson # (Auto) 1.1 H Sodium 128 L Chloride Creatinine 0.5 L Osmolality Calcium 8.0 L Phosphorus 1.8 L AST 40 H ALT Lactate Dehydrogenase Total Creatine Kinase Total Protein 4.4 L Albumin 1.9 L Globulin Albumin/Globulin Ratio 0.8 L Urine Protein Ur Leukocyte Esterase Urine RBC Urine WBC Hyaline Casts 01/22/17 01/22/17 01/22/17 22:40 20:02 15:56 RBC Hgb 7.7 L 8.4 L Hct 22.7 L 24.7 L RDW Plt Count Gran % Lymph % (Auto) Davidson % (Auto) Gran # Lymph # (Auto) Davidson # (Auto) Sodium Chloride Creatinine Osmolality Calcium Phosphorus AST ALT Lactate Dehydrogenase Total Creatine Kinase Total Protein Albumin Globulin Albumin/Globulin Ratio Urine Protein 30 A Ur Leukocyte Esterase 25 A Urine RBC 4 H Urine WBC 7 H Hyaline Casts 7 H 01/22/17 12:05 RBC Hgb 8.7 L Hct 25.6 L RDW Plt Count Gran % Lymph % (Auto) Davidson % (Auto) Gran # Lymph # (Auto) Davidson # (Auto) Sodium Chloride Creatinine Osmolality Calcium Phosphorus AST ALT Lactate Dehydrogenase Total Creatine Kinase Total Protein Albumin Globulin Albumin/Globulin Ratio Urine Protein Ur Leukocyte Esterase Urine RBC Urine WBC Hyaline Casts Meds: Medications Albuterol Sulfate (Ventolin) 1 puff INH Q4HP PRN PRN Reason: Bronchodilation Bisacodyl (Dulcolax) 10 mg AR Q2-3DAYS PRN PRN Reason: Constipation Calcium Carbonate/Glycine (Oscal) 500 mg PO BID [facility] Last Admin: 01/25/17 08:13 Dose: 500 mg Ceftriaxone Sodium (Rocephin) 1 gm IV Q24H [facility] Last Admin: 01/25/17 08:22 Dose: 1 gm Diphenhydramine HCl (Benadryl) 25 mg PO HSP PRN PRN Reason: Sleep Last Admin: 01/24/17 20:31 Dose: 25 mg Furosemide (Lasix) 40 mg IV DAILY [facility] Last Admin: 01/25/17 09:30 Dose: 40 mg Hydromorphone HCl (Dilaudid) 0 mg IV Q2HP PRN PRN Reason: PAIN LEVEL > 6 Acetaminophen (Ofirmev) 650 mg in 65 mls @ 130 mls/hr IV Q6HP PRN PRN Reason: Pain/Fever > 101/chills Sodium Chloride (Sodium Chloride 0.9%) 1,000 mls @ 20 mls/hr IV .Q24H [facility] Last Admin: 01/25/17 08:13 Dose: Not Given Iron Carb/Multivit/Addison/Folic Acid (Multivitamin W/Minerals) 1 tab PO DAILY [facility] Last Admin: 01/25/17 08:13 Dose: 1 tab Lactobacillus Rhamnosus (Culturelle) 1 cap PO DAILY [facility] Last Admin: 01/25/17 08:12 Dose: 1 cap Magnesium Hydroxide (Milk Of Magnesia) 30 ml PO BIDP PRN PRN Reason: Constipation Metoclopramide HCl (Reglan) 2.5 mg PO ACHS [facility] Last Admin: 01/25/17 07:38 Dose: 2.5 mg Omeprazole (Prilosec) 20 mg PO BIDAC [facility] Last Admin: 01/25/17 07:38 Dose: 20 mg Ondansetron HCl (Zofran) 4 mg IV Q4HP PRN PRN Reason: Nausea And Vomiting Oxycodone HCl (Roxicodone) 0 mg PO Q4-6HP PRN PRN Reason: Pain Last Admin: 01/25/17 06:06 Dose: 10 mg Chlorpheniramine Maleate [Chlor- Trimeton] Tablet 1 dose PO Q4HP PRN PRN Reason: Allergy Symptoms Arginine [L-Arginine (] 1 Tablet) 1 dose PO DAILY [facility] Last Admin: 01/25/17 08:14 Dose: Not Given Polyethylene Glycol (Miralax) 17 gm PO DAILY [facility] Last Admin: 01/25/17 08:14 Dose: Not Given Potassium Chloride (Kdur) 20 meq PO QAMCC [facility] Last Admin: 01/25/17 09:30 Dose: 20 meq Pseudoephedrine HCl (Sudafed) 30 mg PO Q12HP PRN PRN Reason: Allergy Symptoms Senna (Senokot) 2 tab PO HS [facility] Last Admin: 01/24/17 20:14 Dose: Not Given Sodium Biphosphate/Sodium Phosphate (Fleets Adult) 1 dose AR Q3-4DAYS PRN PRN Reason: Constipation Sodium Chloride (Saline Flush) 10 ml IV Q8 [facility] Last Admin: 01/25/17 06:07 Dose: 10 ml Temazepam (Restoril) 15 mg PO HSP PRN PRN Reason: Insomnia Throat Lozenges (Cepacol) 1 lozenge PO PRN PRN PRN Reason: Sore Throat Vitamin D (Vitamin D3) 400 unit PO BID [facility] Last Admin: 01/25/17 08:22 Dose: Not Given Medical - PN: A/P - Time Spent With Patient Total time spent is greater than 50% in coordination of care (as documented) at patient's floor/unit and/or counseling patient: - Narrative A/P Narrative: A/P Acute blood loss anemia: due to intraop / fracture related blood loss, Hgb 6.9-->9.0 with just one unit. One of those values is likely erroneous. D/W Dr. Barry--not unusual to see this much bleeding for several days postop with multiple fractures. Continue transfuse PRN Hgb <7.0. Monitor for compartment syndrome. Trend H/H this afternoon. 1g tranexamic acid given 01/23 off asa 325 bid (was being used for dvt prophylaxis). monitor serial h/h, bp is stable. Hyponatremia: Urine Na c/w SIADH (collected prior to diuretics). Diurese again today. Na trending down. Still up 20#. Check Na this afternoon. Elevated transaminases: trending down after DC of Tylenol and hydrocodone Constipation: daily miralax, milk of magnesia. Now stooling. Pyuria: no sx. CTX started 01/23. Cx neg. DC Abx today. GERD w mild gastritis: cont oral prilosec x 1-2 months and try to taper off as OP. No e/o GI bleed noted on EGD on 01/[address] Duron. H. pylori neg. Right femur fracture/ s/p failed gamma nail: Management as per ortho. DVT: scd for now given concern for bleed, resume dvt prophylaxis if no obvious bleed noted. Dispo: To swing bed in [place] when H/H stabilizes vs transfer to [place] per Dr. Barry. ADOD 2-3 days.
[2017-01-25] MEDS: SENNOSIDES 1 TABLET PO SCH (21:13)
[2017-01-26] MEDS: 0.9 % SODIUM CHLORIDE 10 ML SYRINGE IV SCH (05:35)
[2017-01-26 05:58] LABS: Basophils # (Auto) 0 K/mcL (0.0-0.3); Basophils % (Auto) 0 % (0.0-2.0); Eosinophils # (Auto) 0.1 K/mcL (0.0-0.7); Eosinophils % (Auto) 0.7 % (0.0-7.0); Granulocytes % (Auto) 77.4 % (38.0-78.0); Lymphocytes # (Auto) 0.8 K/mcL (1.5-4.8); Mean Cell Volume 93.6 fL (80.0-100.0); Mean Corpuscular HGB Conc 33.6 g/dL (31.0-36.0); Mean Corpuscular Hemoglobin 31.5 pg (26.0-34.0); Monocytes % (Auto) 11.9 % (1.0-12.0); Platelet Count 201 K/mcL (140-440); RBC 2.96 M/mcL (4.00-5.20); Red Cell Distribution Width 15.9 % (11.5-14.5)
[2017-01-26 06:33] LABS: ALT/SGPT 73 U/l (0-40); Albumin 2.2 gm/dL (3.2-5.2); Alkaline Phosphatase 63 U/L (39-117); Bilirubin,Direct < 0.2 mg/dL (0.0-0.3); Blood Urea Nitrogen 11 mg/dl (8-23); Gamma Glutamyl Transpeptidase 30 U/L (5-36); Magnesium 1.6 mg/dL (1.6-2.5)
[2017-01-26] MEDS: OMEPRAZOLE 20 MG CAPSULE PO SCH (07:03)
[2017-01-26] MEDS: METOCLOPRAMIDE 10 MG TABLET PO SCH ×2 (07:03→12:17)
[2017-01-26] MEDS: 0.9 % SODIUM CHLORIDE 1,000 ML IV SCH (07:04)
[2017-01-26] MEDS ORDERED: POTASSIUM CHLORIDE 20 MEQ TABLET PO SCH (08:00)
[2017-01-26] MEDS ORDERED: FUROSEMIDE 40 MG/4 ML VIAL IV SCH (09:00)
[2017-01-26] MEDS: CALCIUM (OYSTER SHELL) 500 MG TABLET PO SCH (09:14)
[2017-01-26] MEDS: POTASSIUM CHLORIDE 20 MEQ TABLET PO SCH (09:14)
[2017-01-26] MEDS: MULTIVIT,THER IRON,CA,FA & MIN 1 TABLET PO SCH (09:14)
[2017-01-26] MEDS: FUROSEMIDE 40 MG/4 ML VIAL IV SCH (09:15)
[2017-01-26] MEDS: LACTOBACILLUS 1 CAPSULE PO SCH (09:15)
[2017-01-26] MEDS: VITAMIN D3 400 UNIT TABLET PO SCH (09:15)
[2017-01-26] MEDS: ARGININE PO SCH (09:15)
[2017-01-26] MEDS: POLYETHYLENE GLYCOL 3350 17 GM PACKET PO SCH (09:15)
--- NOTE | 2017-01-26 11:18 | Discharge Summary ---
Medical - DS: Prov Patient information: Note initiated : 01/26/17 at 11:14 am Service Date, if different from initiated Date: [] Patient: Radha Frost 86 y/o F admitted on 01/19/17 for Pain Control. Chief Complaint: [] Date of admission: 01/19/17 07:41 Discharge date: 01/26/17 Primary care physician: Jose Ramon Barnett Admitting clinician: Kyle Barry Consults: 01/19/17 19:07 Consult to Physician [CONS] Routine Comment: Consulting Provider: Bobbi Yancey Reason For Exam: Physician to Consult 01/21/17 11:16 Consult to Physician [CONS] Routine Comment: Consulting Provider: Clayton Duron Reason For Exam: Physician to Consult Attending physician on discharge: Kyle Barry Discharging clinician: Leia Santoro Medical - DS: Meds - Discharge Medications Prescriptions: HYDROcodone/ACETAMINOPHEN [Hydrocodon-Acetaminophen 5-325] 1 - 2 each PO Q6HP PRN #60 tab PRN Reason: Pain Active and Home Medications: Home Medications Omeprazole [Prilosec] 20 mg PO DAILY 08/10/15 [History Confirmed 01/19/17 Last Taken Unknown] Albuterol Sulfate [Ventolin] 1 puff INH Q4HP PRN 01/19/17 [History Confirmed 12/26 Last Taken Unknown] Arginine [l-Arginine] 1 tablet PO DAILY 01/19/17 [History Confirmed 01/19/17 Last Taken Unknown] Calcium Carbonate [Super Calcium] 600 mg PO BID 01/19/17 [History Confirmed 12/26 Last Taken Unknown] Chlorpheniramine Maleate [Chlor-Trimeton] 1 tablet PO Q4HP PRN MDD 24mg [History Confirmed 01/19/17 Last Taken Unknown] Cholecalciferol (Vitamin D3) [Delta D3] 400 unit PO BID 01/19/17 [History Confirmed 01/19/17 Last Taken Unknown] Cyclobenzaprine [Flexeril] 5 - 10 mg PO HSP PRN 01/19/17 [History Confirmed 12/26 Last Taken Unknown] Docusate Sodium [Dulcolax Stool Softener] 200 mg PO DAILY 01/19/17 [History Confirmed 01/19/17 Last Taken Unknown] Ibuprofen [Ibuprofen Ib] 400 mg PO TIDP PRN 01/19/17 [History Confirmed Last Taken Unknown] Lactobacillus [Culturelle] 1 cap PO DAILY 01/19/17 [History Confirmed 01/19/17 Last Taken Unknown] Lisinopril [Zestril] 30 mg PO DAILY 01/19/17 [History Confirmed 01/19/17 Last Taken Unknown] Metoclopramide [Reglan] 2.5 mg PO ACHS 01/19/17 [History Confirmed 01/19/17 Last Taken Unknown] Multivitamin [One Daily] 1 each PO DAILY 01/19/17 [History Confirmed 01/19/17 Last Taken Unknown] Polyethylene Glycol 3350 [Miralax] 17 gm PO DAILY 01/19/17 [History Confirmed Last Taken Unknown] Pseudoephedrine HCl [Pseudoephedrine ER] 1 tablet PO Q12HP PRN 01/19/17 [ History Confirmed 01/19/17 Last Taken Unknown] diphenhydrAMINE [Benadryl] 25 mg PO HSP PRN 01/19/17 [History Confirmed Last Taken Unknown] HYDROcodone/ACETAMINOPHEN [Hydrocodon-Acetaminophen 5-325] 1 - 2 each PO Q6HP PRN #60 tab 01/23/17 [Rx Last Taken Unknown] Medical - DS: Hosp Hospital course: Addendum: Medical discharge note: January 19, 2017, internal medicine consultation: History of present illness: Ms. Frost is a 86 year old Female with h/op right hip fracture, s/p failed gamma nail, was in the hospital today for removal of gamma nail procedure. The patient in the post op peroid was noted to be consistently hypotensive, and therefore medicine was consulted for further evaluation and management. The patient had procedure done in [place] today, the patient had approximatley 400cc blood loss during the surgical procedure as per op notes. The patient in the pacu and then PCU was hypotensive. During my eval the patient was already ordered 2 units of blood and first unit had just started. The patient complained of chills, but no other symptoms, she was somewhat confused and was not able to provide a proper history. The patient denies any chest pains, shortness of breath, headache , dizziness, abdominal pain, nausea and or vomiting. She has some chills post op, she denies post op pain. Labs show poc hct was 25, CXR chest shows elevated right li diaphram, othewise clear chest. no e/o gross infiltrate. BP during my eval was stable, map was 71, pt was 100% on 3 L nasal mask. January 20: Pt seen examined, no acute overnight issues notes of pain in the lft hip hb improved and has remained stable did receive some IVF today which helped she had received 2 units of blood before coming to [facility] which I am not sure why. monitor hb for now, if remains stable, likely related to surgery and hip fracture. if hb continues to drop will need to consider alternative etiology for blood loss. Jan 21: patient seen examined, overnight the patients hb continued to drop, it had dropped to 8.2 today, she is tachcyardic adn feels a bit dizzy. She has not yet had a bm CT abdomen does not reveal any retroperitoneal bleed, she has a normal BUN CT hip shows some hemorrage, but not a lot as per radiology Will plan to get GI eval to see if any ongoing GI loss? transfuse 2 more units of prbc d/c asa start on SCD for DVT prophylaxis. IV PPI for now Fleets enema to help with BM continue to monitor closely try to get PICC line if no good IV access. Jan 22 Patient seen examined, no acute overnight issues, removed IV, which was placed in Right EJ again, no other concerns or complaints her Hb dropped by 1 grm overnight, hemodynamically stable EGD is negative, reviewed the case with Dr barry, we think its the left leg where she is bleeding into, not much to be done except to transfuse he is ok with holding ASA bid for now for DVT given ongoing bleed at the surgical site. BP is stable Jan 23 patient seen examined no acute overnight issues, bp stable, hb has remained stable since yesterday pm NA dropped to 128, workup sent ua suggestive of UTI, started on rocephin for now cultures pending given stability of bp, and hb, and no source of bleed besides the left thigh, will xfer to med surg status. PT was positive 5L now, somewhat fluid overloaded, give one dose of lasix and see how she does. Jan 24 Hgb 6.9 this AM. D/W Dr. Barry. No further intervention other transfusion. Will give 1 uprbc. Does not have increased pain; has doppler + pulse in L DP and PT. Sodium studies c/w SIADH. Improved a bit after Lasix. Still net positive. Will give Lasix 40 IV today. Bowels starting to move--first time since admission; these were not grossly bloody, but were heme +. R hip pain worse today but this is the most movement she has done. LFTs mildly elevated today; Tylenol and Stacy DC'd. Started on oxycodone. Jan [address] to 9.0 today p only 1 uprbc. Her LLE swelling is much improved and her DP and PT pulses are now palpable. Her Na is worse 129-->125. She is still 20# up from admission. Diurese again today with Lasix 40 IV. LFTs trending down. D/W Dr. Barry today. She is still having significant pain with any movement. He will discuss with ortho in [place] to see if transfer is needed for revision. ROS: no chest pressure or SOB January 26: -This patient was admitted after hip fracture and underwent a complicated surgery with a lot of blood loss. She has received multiple transfusions during her stay, and hemoglobin is now stable at just above 9.0. We believe most of the blood loss was related to her surgery both Intra-Op and then bleeding into the wound afterwards. Dr. Givens reportedly now feels that she is stable enough to start rehab. 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 Dr. Givens reportedly discussed this with a surgeon in [place] who did not think this should be reoperated on at this time. -The patient has also developed hyponatremia during her stay, and also had a 20 pound weight gain. We have been diuresing her the last 2 days, and sodium is starting to improve. -The patient reports she has a bit of a cough today. She did vomit a little after drinking an Ensure this morning. Otherwise she feels well, and denies fever chills, chest pain or palpitations, shortness of breath, abdominal pain, diarrhea or constipation, dysuria. On exam, she is a frail-appearing elderly female in no acute distress. Neck is supple without obvious JVD. Cardiac exam shows regular rate and rhythm. Lungs have somewhat decreased breath sounds, but otherwise are clear to auscultation. Abdomen is soft and nontender. Extremities: Left thigh continues to be swollen, but improving. Left foot is a bit cooler than the right. A/P Narrative: Acute blood loss anemia: due to intraop / fracture related blood loss, Hgb 6.9-->9.0 with just one unit. One of those values is likely erroneous. D/W Dr. Barry--not unusual to see this much bleeding for several days postop with multiple fractures. Continue transfuse PRN Hgb <7.0. Monitor for compartment syndrome. . 1g tranexamic acid given 01/23 off asa 325 bid (was being used for dvt prophylaxis). monitor serial h/h, bp is stable. Hyponatremia: Urine Na c/w SIADH (collected prior to diuretics). Diuresed again yesterday.. TM is just a bit better this morning.. She has diuresed about 3 L over the last 2 days. Weight is trending down. -Sodium will need to be rechecked in a day or 2, to monitor. Elevated transaminases: trending down after DC of Tylenol and hydrocodone Constipation: daily miralax, milk of magnesia. Now stooling. Pyuria: no sx. CTX started 01/23. Cx neg. DC Abx today. GERD w mild gastritis: cont oral prilosec x 1-2 months and try to taper off as OP. No e/o GI bleed noted on EGD on 01/[address] Duron. H. pylori neg. Right femur fracture/ s/p failed gamma nail: Management as per ortho. -DC orthopedic/attending discharge summary. DVT: scd for now given concern for bleed, resume dvt prophylaxis if no obvious bleed noted. Dispo: To swing bed in [place] . Discharge diagnosis: Hip fracture. Complicated. Postop anemia. - Time Spent with Patient Total time spent providing and/or coordinating discharge services: Greater than 30 minutes Medical - DS: Exam - Constitutional Vitals: Vital Signs Temp Pulse Resp BP BP Pulse Ox 01/26/17 07:22 18 91 01/26/17 06:55 98.9 F 89 18 174/97 91 01/26/17 04:00 98.8 F 83 22 152/76 91 01/25/17 23:43 99.8 F H 98 H 22 170/82 94 01/25/17 18:52 99.1 F H 97 H 22 170/75 94 01/25/17 16:00 99.4 F H 97 H 16 156/89 94 01/25/17 12:00 99.4 F H 105 H 16 133/73 89 L Intake and Output 01/25/17 01/26/17 01/26/17 21:59 05:59 13:59 Intake Total 350 / 350 150 / 150 Output Total 900 / 900 950 / 950 Balance -900 / -900 -600 / -600 150 / 150 Intake: Oral 350 / 350 150 / 150 Output: Urine Catheter Amount 900 / 900 950 / 950 Other: Meal Breakfast Percent of Meal Consumed 50% Feeding Ability Independent Weight 165 lb Medical - DS: Data Labs on day of discharge: Labs from last 24 hours 01/26/17 01/26/17 01/25/17 04:12 04:12 15:00 WBC 8.3 RBC 2.96 L Hgb 9.3 L Hct 27.7 L MCV 93.6 MCH 31.5 MCHC 33.6 RDW 15.9 H Plt Count 201 MPV 9.6 Gran % 77.4 Lymph % (Auto) 10.0 L [place] % (Auto) 11.9 Eos % (Auto) 0.7 Baso % (Auto) 0 Gran # 6.4 Lymph # (Auto) 0.8 L [place] # (Auto) 1.0 H Eos # (Auto) 0.1 Baso # (Auto) 0 Differential Comment Y Sodium 123 L 122 L Potassium 3.7 Chloride 84 L Carbon Dioxide 28 Anion Gap 11.0 BUN 11 Creatinine 0.3 L GFR Calculation 103 Glucose 90 Uric Acid 3.0 Calcium 7.4 L Phosphorus 3.0 Magnesium 1.6 Total Bilirubin 0.7 Direct Bilirubin < 0.2 GGT 30 AST 88 H ALT 73 H Alkaline Phosphatase 63 Lactate Dehydrogenase 351 H Total Protein 4.4 L Albumin 2.2 L Globulin 2.2 Albumin/Globulin Ratio 1.0 Triglycerides 62 01/25/17 15:00 WBC RBC Hgb 9.6 L Hct MCV MCH MCHC RDW Plt Count MPV Gran % Lymph % (Auto) [place] % (Auto) Eos % (Auto) Baso % (Auto) Gran # Lymph # (Auto) [place] # (Auto) Eos # (Auto) Baso # (Auto) Differential Comment Sodium Potassium Chloride Carbon Dioxide Anion Gap BUN Creatinine GFR Calculation Glucose Uric Acid Calcium Phosphorus Magnesium Total Bilirubin Direct Bilirubin GGT AST ALT Alkaline Phosphatase Lactate Dehydrogenase Total Protein Albumin Globulin Albumin/Globulin Ratio Triglycerides January 24: CBC, 450: Hemoglobin 6.9, hematocrit 20.6. Next Urine culture showed no growth. MRSA's nasal screen was negative. Left hip x-ray, January 24: IMPRESSION: Left total hip revision. Prosthetic acetabulum extends through fractured, eroded medial [place] acetabulum - accentuated by weightbearing X Left femur x-ray: IMPRESSION: Fracture of the distal femur remains in anatomic alignment and transfixed by plate and screws. January 21: Chest x-ray: Mild atelectasis at the right base. No infiltrates. Medical - DS: A/P - Patient/Caregiver Discharge Instructions Activity: as per physical therapy Diet: Low Sodium (2gm) Prescriptions: HYDROcodone/ACETAMINOPHEN [Hydrocodon-Acetaminophen 5-325] 1 - 2 each PO Q6HP PRN #60 tab PRN Reason: Pain Other Amb Orders: Aspiration Precautions Location: Determined By Patient Fall Risk Location: Determined By Patient Physical Therapy at Discharge - TKA Location: Determined By Patient Physical Therapy at Discharge - General Location: Determined By Patient Wound Care/Dressings Location: Determined By Patient Toilet Riser Discharge Order Location: Determined By Patient Walker Location: Determined By Patient Basic Metabolic Panel Time Frame: 2 Days, Location: Determined By Patient Complete Blood Count Time Frame: 2 Days, Location: Determined By Patient - Follow up Plan Disposition: Xfer SNF Prognosis: Fair Rehab Potential: Fair Overall status at discharge: patient is progressing back to baseline
[2017-01-26] MEDS: oxyCODONE HCL 5 MG TABLET PO PRN (13:06)
== END 2017-01-26 13:25 | DRG 470 ==
LOC: MEDSUR → SUATTDRO 01-19 07:41 → ICU 01-19 20:47 → MEDSUR 01-23 15:25
PROVIDERS: ADMIT Orthopaedic Surgery; ATTEND Internal Medicine